=== PATIENT | male | born 1980 | race Caucasian/White ===

== ENCOUNTER 2023-09-09 15:50 | Inpatient (IN) | payer MEDICAID, SELFPAY ==
[2023-09-09] VITALS (8 sets, daily range): BP systolic 144–170; BP diastolic 101–119; PULSE 109–121; RESP 14–40; TEMP 36.3–36.8; O2SAT 95–100; BMI 22.3
--- NOTE | ~2023-09-09 | CT_ITS ---
EXAMINATION: CT ABDOMEN AND PELVIS WITH CONTRAST CLINICAL INFORMATION: Epigastric pain COMPARISON: None available. TECHNIQUE: Multidetector volumetric images were obtained from the superior aspect of the liver through the pubic symphysis following administration 85 mL of Omnipaque 350 intravenous contrast. Sagittal and coronal reformatted images were obtained on the technologist's workstation. Oral contrast: No This CT examination was performed using dose optimization techniques as appropriate, variously including the following: *Automated exposure control *Adjustment of mA and/or kV according to patient size (this includes techniques or standardized protocols for targeted exams where dose is matched to indication/reason for exam; i.e. extremities or head) *Use of iterative reconstruction technique DLP: 506 mGy-cm FINDINGS: LUNG BASES: There is bronchial thickening and some mild bibasilar atelectasis. LIVER, GALLBLADDER, AND BILIARY TREE: The liver is normal in size, shape, and attenuation. No focal hepatic lesion or biliary ductal dilatation is present. The gallbladder is unremarkable with no evidence of radiopaque gallstones, gallbladder wall thickening, or obvious pericholecystic inflammatory changes. PANCREAS: Inflammatory changes are present surrounding the entire pancreas with fluid in the peripancreatic space. The largest collection of fluid is just beneath the pancreas on the left measuring 5.8 x 2.9 x 1.7 cm. This has ill-defined borders. The pancreas enhances normally. No pancreatic ductal dilatation is seen. No pancreatic calcifications are seen. SPLEEN: Unremarkable. ADRENAL GLANDS: Unremarkable. KIDNEYS AND URETERS: The kidneys are normal in size, shape, and attenuation. No hydronephrosis, hydroureter, or calculi seen. No perinephric stranding. BLADDER: Unremarkable. GASTROINTESTINAL TRACT: The left colon along with the mid ascending colon are empty with some equivocal mucosal thickening. The small and large bowel are unremarkable otherwise. The appendix is not seen with certainty but there is certainly no evidence of appendicitis. ABDOMINAL WALL: No significant hernia is appreciated. LYMPH NODES: No retroperitoneal lymphadenopathy. There is some small intensely enhancing lymph nodes around the ita hepatis and pancreatic head. VASCULAR: Unremarkable. There is no splenic vein thrombosis or pseudoaneurysm is seen the portal venous system and hepatic veins are patent. Mild atherosclerotic change seen in the infrarenal aorta without aneurysm. PELVIC VISCERA: The prostate and seminal vesicles are unremarkable. There is no free pelvic fluid. OSSEOUS STRUCTURES: Unremarkable. CT/CT abdomen pelvis w IV con IMPRESSION: 1. Findings are consistent with acute pancreatitis with peripancreatic fluid collections. 2. Other incidental findings as described above. Fleischner guidelines were followed.
--- NOTE | ~2023-09-09 | US_ITS ---
EXAMINATION: US ABDOMEN LIMITED CLINICAL INFORMATION: Abdominal pain. COMPARISON: CT from 09/09/2023 TECHNIQUE: Real-time imaging of the right upper quadrant abdominal viscera. FINDINGS: LIVER: The liver is normal in size. The liver contour is normal. There is diffuse increased liver parenchymal echogenicity, consistent with hepatic steatosis. No focal hepatic lesion. There is no intrahepatic biliary duct dilatation seen. GALLBLADDER: Cystic area seen off the fundus of the gallbladder most consistent with a phrygian cap. The gallbladder is physiologically distended without evidence of stones, sludge, polyps, wall thickening or pericholecystic fluid. COMMON BILE DUCT: Normal in caliber measuring 0.3 cm in diameter. FREE FLUID: Trace perihepatic ascites US/US abdomen complete IMPRESSION: 1. Hepatic steatosis. 2. Trace perihepatic ascites.
--- NOTE | ~2023-09-09 | CT_ITS ---
EXAMINATION: CT ABDOMEN AND PELVIS WITH CONTRAST CLINICAL INFORMATION: Abdominal pain, pancreatitis COMPARISON: CT abdomen and pelvis 09/09/2023 TECHNIQUE: Multidetector volumetric images were obtained from the superior aspect of the liver through the pubic symphysis following administration 85 mL of Omnipaque 350 intravenous contrast. Sagittal and coronal reformatted images were obtained on the technologist's workstation. Oral contrast: No This CT examination was performed using dose optimization techniques as appropriate, variously including the following: *Automated exposure control *Adjustment of mA and/or kV according to patient size (this includes techniques or standardized protocols for targeted exams where dose is matched to indication/reason for exam; i.e. extremities or head) *Use of iterative reconstruction technique DLP: 454 mGy-cm FINDINGS: LUNG BASES: Unremarkable. ABDOMINAL AND PELVIC WALL: Tiny fat-containing umbilical hernia. LIVER AND BILIARY TREE: Unremarkable. GALLBLADDER: Unremarkable. PANCREAS: Interval improvement in pancreatic parenchymal edema within the pancreatic head which is decreased in size with decreasing inflammatory change surrounding the pancreatic head and resolution of adjacent duodenal wall thickening. There is persistent peripancreatic fluid and stranding surrounding the pancreatic body and tail which is similar in volume to prior, with an acute peripancreatic collection inferior to the pancreas measuring approximately 7.6 cm, previously 7.5 cm when measured in a similar fashion. Pancreas is homogeneously enhancing. No pancreatic duct dilatation. SPLEEN: Unremarkable. ADRENAL GLANDS: Unremarkable. KIDNEYS AND URETERS: Unremarkable. GASTROINTESTINAL TRACT: Colonic diverticulosis without focal pericholecystic inflammatory change to suggest diverticulitis. There is diffuse deposition of intramural fat throughout the colon which is nonspecific though may reflect sequelae of prior chronic inflammation. The appendix is not identified with certainty however there are no right lower quadrant inflammatory changes to favor appendicitis. VASCULAR: Unremarkable. LYMPH NODES/PERITONEUM: No lymphadenopathy. FREE FLUID: None. BLADDER: Unremarkable. PELVIC VISCERA: Unremarkable. OSSEOUS STRUCTURES: Unremarkable. CT/CT abdomen pelvis w IV con IMPRESSION: Again seen are findings of acute interstitial pancreatitis with improvement in pancreatic parenchymal edema within the pancreatic head which is decreased in size with decreasing inflammatory change surrounding the pancreatic head and resolution of adjacent duodenal wall thickening. There is persistent peripancreatic fluid and stranding surrounding the pancreatic body and tail which is similar in volume to prior, with an acute peripancreatic collection inferior to the pancreas measuring approximately 7.6 cm. Pancreas is homogeneously enhancing. No pancreatic duct dilatation.
--- NOTE | ~2023-09-09 | XR_ITS ---
EXAMINATION: XR CHEST CLINICAL INFORMATION: Rule out free air under the diaphragm COMPARISON: None available. TECHNIQUE: Frontal view of the chest was obtained. FINDINGS: No significant abnormality is noted involving the heart, lungs, mediastinum, bony thorax or soft tissues. There is no free air under the diaphragm XR/XR chest 1V IMPRESSION: Unremarkable examination.
--- NOTE | 2023-09-09 15:52 | ECG_ITS ---
Test Reason : CHEST PAIN Blood Pressure : / mmHG Vent. Rate : 123 BPM Atrial Rate : 123 BPM P-R Int : 126 ms QRS Dur : 078 ms QT Int : 318 ms P-R-T Axes : 082 121 057 degrees QTc Int : 455 ms Sinus tachycardia Biatrial enlargement Right axis deviation Abnormal ECG No previous ECGs available Referred By: Generic ED Physician Electronically Signed By:GRETCHEN PHELPS
--- NOTE | 2023-09-09 16:16 | ECG_ITS ---
Test Reason : chest pain Blood Pressure : / mmHG Vent. Rate : 091 BPM Atrial Rate : 091 BPM P-R Int : 134 ms QRS Dur : 078 ms QT Int : 390 ms P-R-T Axes : 085 090 054 degrees QTc Int : 479 ms Normal sinus rhythm Possible Left atrial enlargement Rightward axis Borderline ECG When compared with ECG of 09-SEP-2023 15:52, No significant changes seen Referred By: Leana Nelson Electronically Signed By:GRETCHEN PHELPS
[2023-09-09] MEDS: 0.9 % Sodium Chloride 1,000 ML 999 ML IVCONT ×3 (16:25→20:08)
[2023-09-09] MEDS: fentaNYL citrate/PF 100 MCG/2 ML VIAL 50 MCG IVPUSH (16:30)
--- NOTE | 2023-09-09 16:30 | PC.NURSE ---
patient presented to the ED room, diaphoretic, pale, tachycardic and hypotensive, placed and 18# in the right and a 20# in the left, hung 2L NS, cultures and lab work obtained. patient initially lethargic. patient mom states that the patient drank 5 nips prior to arrival. patient is chronic everyday drinker. patient states he has abdominal pain and chest pain
[2023-09-09 16:33] LABS: MANUAL DIFF FLAG NO
[2023-09-09 16:35] LABS: Basophils Absolute Auto 0.1 X10*3/uL (0.0-0.2); Basophils Percent Auto 0.7 % (0-2); Eosinophils Absolute Auto 0.1 X10*3/uL (0.0-0.4); Eosinophils Percent Auto 0.8 % (0-4); Hematocrit 51.2 % (42.0-52.0); Hemoglobin 17.9 g/dl (14.0-18.0); Imm Gran Abs Auto 0.13 X10*3/uL (0.00-0.03); Imm Gran Pct Auto 0.8 % (0.0-0.4); Lymphocytes Percent Auto 17.5 % (20-40); Mean Corpuscular Hemoglobin 33.8 pg (27.0-33.0); Mean Corpuscular Volume 96.8 fL (80.0-98.0); Mean Platelet Volume 10.8 fL (9.4-12.4); Monocytes Absolute Auto 1.3 X10*3/uL (0.1-1.2); Monocytes Percent Auto 7.4 % (2-11); Neutrophils Absolute Auto 12.3 x10*3/uL (2.0-8.3); Neutrophils Percent Auto 72.8 % (45-73); Platelet Count 246 X10*3/uL (160-400); Red Blood Count 5.29 X10*6/uL (4.60-5.80); Red Cell Distribution Width 12.2 % (11.0-16.0); White Blood Count 16.9 X10*3/uL (4.8-10.8)
[2023-09-09 16:47] LABS: COVID-19 Test Negative (Negative); IDNOW Serial# 58CA691E
[2023-09-09] MEDS: Pantoprazole Sodium 40 MG/10 ML VIAL 80 MG IVPUSH (16:49)
[2023-09-09] MEDS: ondansetron HCL 4 MG/2 ML VIAL IVPUSH ×2 (16:50→23:46)
[2023-09-09] MEDS: iohexoL 350 MG/ML 100 ML INFUS..BTL 85 ML IV (16:52)
[2023-09-09 17:05] LABS: Troponin-I High Sensitivity < 2.7 ng/L (<3.5-35.0)
[2023-09-09 17:08] LABS: Lactic Acid 4.3 mmol/L (0.5-2.0)
--- NOTE | 2023-09-09 17:12 | ED_ITS ---
HPI - Chest Pain General Chief Complaint: Chest Pain Stated Complaint: Chest pain Time Seen by Provider: 09/09/23 16:09 Source: patient and family Mode of arrival: ambulatory Limitations: no limitations History of Present Illness ED Provider: Dr. Leana Nelson HPI narrative: Patient comes to the emergency room complaining of severe epigastric pain and chest pain that started this morning approximately 7 hours ago. Patient states that for the last 3 days, he has been having abdominal pain. For the last day the pain has been unbearable. However, the patient states that he was afraid of coming to the emergency room because he does not have health insurance. Today, patient became diaphoretic, had chest pain and epigastric pain. Patient's mother is a nurse and forced him to come to the emergency room. According to the patient, he admits to drinking alcohol daily, 5 nips daily. Patient admits that he drank alcohol this morning. Per patient's mother, he also smokes marijuana, cigarettes and possibly does drugs. Related Data Allergies Allergy/AdvReac Type Severity Reaction Status Date / Time cefaclor [From Ceclor] AdvReac Unknown Verified 09/09/23 16:11 Review of Systems 2 Review of Systems: Constitutional : No Weight loss, No Fever, No Chills, No Night Sweats, No Fatigue, No Malaise ENT/Mouth : No Hearing loss, No Ear Pain, No Nasal Congestion, No Sinus Pain, No Hoarseness, No sore throat, No Rhinorrhea, No Swallowing Difficulty Eyes: No Eye Pain, No Swelling, No Redness, No Foreign Body, No Discharge, No Vision Changes Cardiovascular : Complaining of severe epigastric/substernal Chest Pain, No SOB, No Dyspnea on Exertion, No Orthopnea, No Edema, No Palpitations Respiratory : No Cough, No Sputum, No Wheezing, No Smoke Exposure, No Dyspnea Gastrointestinal : Complaining of nausea vomiting, diarrhea, severe epigastric pain, denies hematemesis or melena Genitourinary : no irregular bleeding, No Dysuria, No Urinary Frequency, No Hematuria, No Urinary Incontinence, No Urgency, No Flank Pain, No Urinary Flow Changes, No Hesitancy Musculoskeletal : No joint pain, No Myalgias, No Joint Swelling Skin : No Skin Lesions, No rash Neuro : No Weakness, No Numbness, No Paresthesias, No Loss of Consciousness, No Dizziness, No Headache Psych : No Anxiety/Panic, No Depression, No SI/HI/AH/VH, No Social Issues, Heme/Lymph: No Bruising, No Bleeding,No Lymphadenopathy Endocrine : No Polyuria, No Polydipsia, No Temperature Intolerance [facility] Past Medical History Medical History Alcohol abuse Social History Social History Alcohol intake: current Alcohol intake frequency: 3 or more drinks per day Alcohol type: hard liquor Use of substances other than those prescribed or required for medical reasons: No Advance Directives: No Advance Directives Information Provided: No Do you have a plan to hurt others: No Plan Physical Exam 2 Vital Signs: Vital Signs: Last Vital Signs Temp 97.9 F 09/09/23 18:38 Pulse 120 H 09/09/23 18:38 Resp 32 H 09/09/23 18:38 BP 159/112 H 09/09/23 18:38 Pulse Ox 100 09/09/23 18:38 O2 Del Method Room Air 09/09/23 18:38 BMI result Body Mass Index 22.3 Const: Other: Appearance: Alert. Oriented X3. Patient in severe pain , tremulous Eyes: Pupils equal, round and reactive to light. ENT: Pharynx normal. Neck: Normal inspection. Neck supple. No lymph nodes noted. No crepitus CVS: Normal heart rate and rhythm. Pulses normal. Normal S1 and S2 Respiratory: No respiratory distress. Breath sounds normal. No Wheezing. No rales Abdomen: Soft, slightly distended, very painful to palpation with guarding over the epigastric area and periumbilical area. Skin: Skin warm and clammy, patient diffusely pale. Extremities: No lower extremity edema. No Lacerations. No Rash Neuro: Oriented X 3. No motor deficit. No sensory deficit. Moving all extremities. No slurred speech. CN 2 through 12 grossly intact Psych: calm, cooperative, a bit anxious Course Course Course Narrative: -all of patient's labs and imaging pending -EKG shows some subtle ST segment depressions in inferior and lateral leads less than 1 mm, cardiology has been contacted: Nonspecific changes at this time -patient was given 50 mcg of IV fentanyl -stat chest x-ray ordered to rule out free air under the diaphragm -will need a CT Medications Administered Generic Name Dose Route Start Last Admin Trade Name Freq PRN Reason Stop Dose Admin Sodium Chloride 1,000 mls @ 999 mls/hr 09/09/23 19:55 09/09/23 20:07 Ns IVCONT 09/09/23 20:55 999 mls/hr .Q1H1M ONE Administration Sodium Chloride 1,000 mls @ 999 mls/hr 09/09/23 20:01 09/09/23 20:08 Ns IVCONT 09/09/23 21:01 999 mls/hr .Q1H1M ONE Administration Discontinued Medications Generic Name Dose Route Start Last Admin Trade Name Kulwant PRN Reason Stop Dose Admin Fentanyl 50 mcg 09/09/23 16:24 09/09/23 16:30 Fentanyl Citrate/Pf 100 Mcg/2 Ml Vial IVPUSH 09/09/23 16:25 50 mcg Q1H ONE Administration Protocol Hydromorphone HCl 1 mg 09/09/23 19:26 09/09/23 19:36 Hydromorphone Hcl 1 Mg/Ml Syringe IVPUSH 09/09/23 19:27 1 mg ONCE ONE Administration Protocol Sodium Chloride 1,000 mls @ 999 mls/hr 09/09/23 16:16 09/09/23 17:51 Ns IVCONT 09/09/23 17:16 Infused .Q1H1M ONE Infusion Sodium Chloride 2,177.25 mls @ 2,177.25 mls/hr 09/09/23 17:11 09/09/23 19:02 Ns 30 ml/kg infuse over 1 hr (2177.25 ml) 09/09/23 18:10 Infused IV Infusion .Q1H STA Piperacillin Sod/Tazobactam 50 mls @ 100 mls/hr 09/09/23 17:11 09/09/23 17:51 Sod 3.375 gm/ Sodium Chloride IV 09/09/23 17:40 Infused ONCE ONE Infusion Iohexol 85 ml 09/09/23 16:51 09/09/23 16:52 Iohexol 350 Mg/Ml 100 Ml Infus..Btl IV 09/09/23 16:52 85 ml ONCE ONE Administration Lorazepam 2 mg 09/09/23 19:55 09/09/23 20:07 Lorazepam 2 Mg/Ml Vial IVPUSH 09/09/23 19:56 2 mg ONCE ONE Administration Morphine Sulfate 4 mg 09/09/23 16:19 09/09/23 17:45 Morphine Sulfate 4 Mg/Ml Cartridge IVPUSH 09/09/23 16:20 4 mg ONCE ONE Administration Protocol Ondansetron HCl 4 mg 09/09/23 16:19 09/09/23 16:50 Ondansetron Hcl 4 Mg/2 Ml Vial IVPUSH 09/09/23 16:20 4 mg ONCE ONE Administration Pantoprazole Sodium 80 mg 09/09/23 16:19 09/09/23 16:49 Pantoprazole Sodium 40 Mg/10 Ml Vial IVPUSH 09/09/23 16:20 80 mg ONCE ONE Administration Medical Decision Making Medical Decision Making [facility] Narrative: -my interpretation of chest x-ray: No obvious free air under the diaphragm. CT scan to follow - -my interpretation of EKG 1: Sinus tachycardia, heart rate 123, nonspecific ST segment depressions in inferior leads and lateral leads less than 1 mm, no T- wave inversion, QTC 455 -I discussed the EKG findings with Dr. Ann, no obvious sign on STEMI/NSTEMI at this time. -at this time, 17:12, we received some of the labs, patient's white blood cell count is 16.9, lactic acid 4.3. This is secondary to pancreatitis, not sepsis. The rest of the labs are still pending. Patient does not have fever, blood pressure is actually elevated, 166/104. However, patient looks significantly sick. We will go ahead and start sepsis protocol at this time. Patient will be treated with IV fluids 30 mL/kilograms and empirically with Zosyn. -my interpretation of CT scan: Possible necrotizing pancreatitis? Stat radiology report has been requested -radiology report: Acute pancreatitis with peripancreatic collections -overall, patient feels much better, patient has had morphine, Dilaudid, fentanyl, patient eating ice chips and tolerating well -I discussed the patient with Dr. English and Dr. Azul, patient being admitted Differential Diagnosis Differential Diagnoses: The differential diagnosis associated with the presentation includes (Peptic ulcer perforation, necrotizing pancreatitis, pancreatitis, small-bowel obstruction, ACS) Admission/Observation Consideration of admission/observation: Escalation of care including admission/observation considered Consult Healthcare Provider Management of the patient was discussed with: Signalling And Communications Engineer Lab Data [facility] Lab Attestation statement: I reviewed the patient's lab results. 09/09/23 16:28 09/09/23 19:20 Labs: Lab Results 09/09/23 09/09/23 09/09/23 Range/Units 16:28 16:55 17:07 WBC 16.9 H (4.8-10.8) X10*3/uL RBC 5.29 (4.60-5.80) X10*6/uL Hgb 17.9 (14.0-18.0) g/dl Hct 51.2 (42.0-52.0) % MCV 96.8 (80.0-98.0) fL MCH 33.8 H (27.0-33.0) pg MCHC 35.0 (31.0-36.0) g/dl RDW 12.2 (11.0-16.0) % Plt Count 246 (160-400) X10*3/uL MPV 10.8 (9.4-12.4) fL Immature Gran % (Auto) 0.8 H (0.0-0.4) % Neut % (Auto) 72.8 (45-73) % Lymph % (Auto) 17.5 L (20-40) % [place] % (Auto) 7.4 (2-11) % Eos % (Auto) 0.8 (0-4) % Baso % (Auto) 0.7 (0-2) % Lymph # (Auto) 3.0 (1.2-4.9) X10*3/uL [place] # (Auto) 1.3 H (0.1-1.2) X10*3/uL Eos # (Auto) 0.1 (0.0-0.4) X10*3/uL Baso # (Auto) 0.1 (0.0-0.2) X10*3/uL Abs Immat Gran (auto) 0.13 H (0.00-0.03) X10*3/uL Absolute Neuts (auto) 12.3 H (2.0-8.3) x10*3/uL Absolute Nucleated RBC 0.000 (0.0-0.012) X10*3/uL Nucleated RBC % (auto) 0.0 (0.0-0.2) /100WBC PT 10.9 L (11.1-13.3) SEC INR 0.9 (0.9-1.1) Sodium (135-145) mmol/L Potassium (3.3-5.1) mmol/L Chloride (96-108) mmol/L Carbon Dioxide (22-29) mmol/L Anion Gap (12-20) BUN (9-16) mg/dL Creatinine (0.5-1.4) mg/dL Estim Creat Clear Calc Estimated GFR Random Glucose (60-115) mg/dL Lactic Acid (0.5-2.0) mmol/L Lactic Acid F/U @ 2Hr (0.5-2.0) mmol/L Calcium (8.4-10.2) mg/dL Magnesium (1.6-2.6) mg/dL Total Bilirubin (0.0-1.0) mg/dL Direct Bilirubin (0.0-0.5) mg/dL AST (5-37) U/L ALT (0-40) U/L Alkaline Phosphatase (39-117) U/L Troponin I High Sens < 2.7 (<3.5-35.0) ng/L Total Protein (6.5-8.0) g/dL Albumin (3.5-5.0) g/dL Lipase (8-78) U/L Urine Color Yellow Urine Appearance Clear Urine pH 6.5 (5.0-9.0) Ur Specific [place] >= 1.030 H (1.005-1.025) Urine Protein 30 (1+) H (Neg-Trace) mg/dL Urine Glucose (UA) Negative (Negative) mg/dL Urine Ketones 15 (Negative) mg/dL Urine Blood Negative (Negative) Urine Nitrite Negative (Negative) Ur Leukocyte Esterase Negative (Negative) Urine RBC 0-2 (0-2) /HPF Urine WBC 0-5 (0-5) /HPF Ur Squamous Epith Cells 0-2 (0-2) /HPF Urine Bacteria None Seen (None Seen) Hyaline Casts 3-5 (0-2) /LPF Urine Opiates Screen Not Detected (Not Detect) Ur Buprenorphine Scrn Not Detected (Not Detect) ng/mL Ur Oxycodone Screen Not Detected (Not Detect) ng/mL Urine Methadone Screen Not Detected (Not Detect) ng/mL Urine Fentanyl Screen POSITIVE H (Not Detect) Ur Barbiturates Screen Not Detected (Not Detect) Ur Phencyclidine Scrn Not Detected (Not Detect) Ur Amphetamines Screen Not Detected (Not Detect) U Benzodiazepines Scrn Not Detected (Not Detect) Urine Cocaine Screen Not Detected (Not Detect) U Marijuana (THC) Screen POSITIVE H (Not Detect) Ethyl Alcohol 126 mg/dL COVID-19 ([facility]) Negative (Negative) COVID-19 Clin Com See Note 09/09/23 09/09/23 Range/Units 19:20 Unknown WBC (4.8-10.8) X10*3/uL RBC (4.60-5.80) X10*6/uL Hgb (14.0-18.0) g/dl Hct (42.0-52.0) % MCV (80.0-98.0) fL MCH (27.0-33.0) pg MCHC (31.0-36.0) g/dl RDW (11.0-16.0) % Plt Count (160-400) X10*3/uL MPV (9.4-12.4) fL Immature Gran % (Auto) (0.0-0.4) % Neut % (Auto) (45-73) % Lymph % (Auto) (20-40) % [place] % (Auto) (2-11) % Eos % (Auto) (0-4) % Baso % (Auto) (0-2) % Lymph # (Auto) (1.2-4.9) X10*3/uL [place] # (Auto) (0.1-1.2) X10*3/uL Eos # (Auto) (0.0-0.4) X10*3/uL Baso # (Auto) (0.0-0.2) X10*3/uL Abs Immat Gran (auto) (0.00-0.03) X10*3/uL Absolute Neuts (auto) (2.0-8.3) x10*3/uL Absolute Nucleated RBC (0.0-0.012) X10*3/uL Nucleated RBC % (auto) (0.0-0.2) /100WBC PT (11.1-13.3) SEC INR (0.9-1.1) Sodium 142 (135-145) mmol/L Potassium 3.6 (3.3-5.1) mmol/L Chloride 108 (96-108) mmol/L Carbon Dioxide 17 L (22-29) mmol/L Anion Gap 21 H (12-20) BUN 6 L (9-16) mg/dL Creatinine 0.85 (0.5-1.4) mg/dL Estim Creat Clear Calc 117.4 Estimated GFR > 60 Random Glucose 88 (60-115) mg/dL Lactic Acid 4.3 H* (0.5-2.0) mmol/L Lactic Acid F/U @ 2Hr 3.6 H* (0.5-2.0) mmol/L Calcium 8.0 L (8.4-10.2) mg/dL Magnesium 1.5 L (1.6-2.6) mg/dL Total Bilirubin 0.9 (0.0-1.0) mg/dL Direct Bilirubin 0.4 (0.0-0.5) mg/dL AST 119 H (5-37) U/L ALT 239 H (0-40) U/L Alkaline Phosphatase 83 (39-117) U/L Troponin I High Sens (<3.5-35.0) ng/L Total Protein 6.7 (6.5-8.0) g/dL Albumin 4.2 (3.5-5.0) g/dL Lipase 842 H (8-78) U/L Urine Color Urine Appearance Urine pH (5.0-9.0) Ur Specific [place] (1.005-1.025) Urine Protein (Neg-Trace) mg/dL Urine Glucose (UA) (Negative) mg/dL Urine Ketones (Negative) mg/dL Urine Blood (Negative) Urine Nitrite (Negative) Ur Leukocyte Esterase (Negative) Urine RBC (0-2) /HPF Urine WBC (0-5) /HPF Ur Squamous Epith Cells (0-2) /HPF Urine Bacteria (None Seen) Hyaline Casts (0-2) /LPF Urine Opiates Screen (Not Detect) Ur Buprenorphine Scrn (Not Detect) ng/mL Ur Oxycodone Screen (Not Detect) ng/mL Urine Methadone Screen (Not Detect) ng/mL Urine Fentanyl Screen (Not Detect) Ur Barbiturates Screen (Not Detect) Ur Phencyclidine Scrn (Not Detect) Ur Amphetamines Screen (Not Detect) U Benzodiazepines Scrn (Not Detect) Urine Cocaine Screen (Not Detect) U Marijuana (THC) Screen (Not Detect) Ethyl Alcohol mg/dL COVID-19 ([facility]) (Negative) COVID-19 Clin Com Independent Interpretation I performed an independent interpretation of an: EKG and CT Scan Radiology Impression Discussion of test interpretation with radiology: I have reviewed the radiologist's reading. Radiologist Impression: FINDINGS: LUNG BASES: There is bronchial thickening and some mild bibasilar atelectasis. LIVER, GALLBLADDER, AND BILIARY TREE: The liver is normal in size, shape, and attenuation. No focal hepatic lesion or biliary ductal dilatation is present. The gallbladder is unremarkable with no evidence of radiopaque gallstones, gallbladder wall thickening, or obvious pericholecystic inflammatory changes. PANCREAS: Inflammatory changes are present surrounding the entire pancreas with fluid in the peripancreatic space. The largest collection of fluid is just beneath the pancreas on the left measuring 5.8 x 2.9 x 1.7 cm. This has ill-defined borders. The pancreas enhances normally. No pancreatic ductal dilatation is seen. No pancreatic calcifications are seen. SPLEEN: Unremarkable. ADRENAL GLANDS: Unremarkable. KIDNEYS AND URETERS: The kidneys are normal in size, shape, and attenuation. No hydronephrosis, hydroureter, or calculi seen. No perinephric stranding. BLADDER: Unremarkable. GASTROINTESTINAL TRACT: The left colon along with the mid ascending colon are empty with some equivocal mucosal thickening. The small and large bowel are unremarkable otherwise. The appendix is not seen with certainty but there is certainly no evidence of appendicitis. ABDOMINAL WALL: No significant hernia is appreciated. LYMPH NODES: No retroperitoneal lymphadenopathy. There is some small intensely enhancing lymph nodes around the ita hepatis and pancreatic head. VASCULAR: Unremarkable. There is no splenic vein thrombosis or pseudoaneurysm is seen the portal venous system and hepatic veins are patent. Mild atherosclerotic change seen in the infrarenal aorta without aneurysm. PELVIC VISCERA: The prostate and seminal vesicles are unremarkable. There is no free pelvic fluid. OSSEOUS STRUCTURES: Unremarkable. CT/CT abdomen pelvis w IV con IMPRESSION: 1. Findings are consistent with acute pancreatitis with peripancreatic fluid collections. 2. Other incidental findings as described above. Fleischner guidelines were followed. Independent Historian Clinical information obtained from an independent historian. History obtained from or confirmed by: Parent (Patient's mother) Critical Care Time Critical Care Time Critical Care Time: Yes Total Critical Care Time: 75 Attestation: I have personally provided critical care time. Time includes review of lab data, radiology results, discussion with consultants, and monitoring for potential decompensation. Intervention performed as documented. Discharge Plan Discharge Clinical Impression: Acute pancreatitis Patient Disposition: Admitted As Inpatient Print Language: [place]
[2023-09-09 17:15] LABS: INTERNATIONAL NORM RATIO 0.9 (0.9-1.1); Prothrombin Time 10.9 SEC (11.1-13.3)
[2023-09-09] MEDS: Piperacillin Sodium/Tazobactam 3.375 GM in 0.9 % Sodium Chloride 50 ML IV (17:15)
[2023-09-09 17:17] LABS: Ethanol 126 mg/dL
[2023-09-09 17:22] LABS: Appearance Urine Clear; Color Urine Yellow; Glucose Urine UA Negative (Negative); Leukocyte Esterase Urine Negative (Negative); Nitrite Urine Negative (Negative); PH 6.5 (5.0-9.0); UMIC TRIGGER UACC YES; Urine Blood Negative (Negative); Urine Ketones 15 mg/dL (Negative); Urine Protein 30 (1+) mg/dL (Neg-Trace)
[2023-09-09] MEDS: 0.9 % Sodium Chloride 2,177.25 ML 2177.25 ML IV (17:23)
[2023-09-09 17:33] LABS: Amphetamine Screen Urine Not Detected (Not Detect); Barbiturates, Urine Not Detected (Not Detect); Benzodiazepines Screen Urine Not Detected (Not Detect); Buprenorphine Scr Not Detected (Not Detect); Cannabinoid Screen Urine POSITIVE (Not Detect); Cocaine Screen Urine Not Detected (Not Detect); Fentanyl, urine POSITIVE (Not Detect); Methadone Screen, Urine Not Detected (Not Detect); Opiate Screen Urine Not Detected (Not Detect); Oxycodone Screen Urine Not Detected (Not Detect); Phencyclidine Screen Urine Not Detected (Not Detect)
[2023-09-09] MEDS: Morphine Sulfate 4 MG/ML CARTRIDGE IVPUSH (17:45)
[2023-09-09 18:29] LABS: Bacteria Urine None Seen (None Seen); RBC Urine 0-2 /HPF (0-2); Squamous Epithelial Cell Urine 0-2 /HPF (0-2); WBC Urine 0-5 /HPF (0-5)
[2023-09-09 18:32] LABS: Specific Gravity - Urine >= 1.030 (1.005-1.025)
[2023-09-09 18:32] LABS: Reflex Lactate? Lactic Acid Added
[2023-09-09] MEDS: HYDROmorphone HCl 1 MG/ML SYRINGE IVPUSH ×2 (19:36→23:46)
[2023-09-09 19:54] LABS: ~Lactic Acid-LAB USE ONLY 3.6 mmol/L (0.5-2.0)
[2023-09-09 19:58] LABS: Alanine Aminotransferase 239 U/L (0-40); Albumin Level 4.2 g/dL (3.5-5.0); Alkaline Phosphatase 83 U/L (39-117); Anion Gap 21 (12-20); Aspartate Amino Transferase 119 U/L (5-37); Bilirubin Direct 0.4 mg/dL (0.0-0.5); Bilirubin Total 0.9 mg/dL (0.0-1.0); Blood Urea Nitrogen 6 mg/dL (9-16); Carbon Dioxide 17 mmol/L (22-29); Chloride 108 mmol/L (96-108); Creatinine Clr Calc Pharmacy 117.4; Estimated Glomerular Filt Rate > 60; Glucose Random 88 mg/dL (60-115); Lipase 842 U/L (8-78); Magnesium 1.5 mg/dL (1.6-2.6); Potassium 3.6 mmol/L (3.3-5.1); Sodium 142 mmol/L (135-145); Total Protein 6.7 g/dL (6.5-8.0)
[2023-09-09] MEDS: LORazepam 2 MG/ML VIAL IVPUSH (20:07)
--- NOTE | 2023-09-09 21:07 | P.HPHOSP_ITS ---
History of Present Illness Date of Service: 09/09/23 Attending physician on admission: Pauly Birmingham Chief Complaint: Abdominal pain J Luis Mcguire is a very pleasant 43 years old man with past medical history significant for alcohol abuse presents to the emergency department complaining of epigastric pain that has been on and off over the last 4 days. Today he experience burning chest pain with deep inspiration associated with multiple events of nonbloody/non coffee-ground vomiting. He reported suggestive fever. Denies diarrhea, headache, shortness of breath or cough. Last bowel movement was yesterday was normal. Abdominal past medical history significant for appendectomy. He drinks 4-5 shots of vodka. Last alcoholic drink was today around lunchtime. Denied illicit drug use. Smoke marijuana in occasions. In the ED, he was found to be hypertensive, tachypneic and tachycardic. There is no fever. There is hypomagnesemia, 1.5 and bicarb is 17. There are no other electrolyte imbalances. Renal function is normal. Transaminases are elevated. Bilirubin and alk phos are normal. Lipase is 142. Troponin is negative. Lactic acid was initially 4.3, rechecked 3.6. CXR is negative. Abdominal pelvis CT scan showed findings consistent with acute pancreatitis with peripancreatic fluid collections. ECG showed normal sinus rhythm without abuse ischemic changes. COVID-19 test is negative. Urine toxicology: Positive for fentanyl and marijuana. ETOH level is 126. UA showed increased specific gravity and 1+ protein. ED tx: NS 5 L bolus, Ativan 2 mg IV, Dilaudid 1 mg IV, Zosyn 3.375 g IV, fentanyl 50 mcg IV, Zofran 4 mg IV, morphine 4 mg IV, Protonix 80 mg IV Review of Systems 2 Review of Systems: All 12 systems were reviewed and normal except as noted in HPI. [facility] Medical History Acute pancreatitis Alcohol abuse Surgical History (Updated 09/09/23 @ 21:43 by Pauly Birmingham MD) History of appendectomy Social History Alcohol intake: current Alcohol intake frequency: 3 or more drinks per day Alcohol type: hard liquor Use of substances other than those prescribed or required for medical reasons: No Advance Directives: No Advance Directives Information Provided: No Do you have a plan to hurt others: No Plan Meds Allergies Allergy/AdvReac Type Severity Reaction Status Date / Time cefaclor [From [facility]] AdvReac Unknown Verified 09/09/23 16:11 Active Medications: Current Medications Acetaminophen (Acetaminophen 325 Mg Tablet) 650 mg PO Q6H PRN PRN Reason: Pain, Mild (Pain Scale 1-3), fever or headache Enoxaparin Sodium (Enoxaparin Sodium 40 Mg/0.4 Ml Syringe) 40 mg SUBCUT Q24H JAQUELINE Hydromorphone HCl (Hydromorphone Hcl 1 Mg/Ml Syringe) 1 mg IVPUSH Q4H PRN; Protocol PRN Reason: Pain, Severe (Pain Scale 7-10) Dextrose/Sodium Chloride (D5ns) 1,000 mls @ 125 mls/hr IVCONT .Q8H JAQUELINE Thiamine HCl 100 mg/ Sodium (Chloride) 101 mls @ 202 mls/hr IV DAILY JAQUELINE Ondansetron HCl (Ondansetron Hcl 4 Mg/2 Ml Vial) 4 mg IVPUSH Q6H PRN PRN Reason: Nausea and Vomiting Pantoprazole Sodium (Pantoprazole Sodium 40 Mg/10 Ml Vial) 40 mg IVPUSH BID [facility] Sodium Chloride (0.9 % Sodium Chloride Flush 3 Ml Syringe) 3 ml IVFLUSH QSHIFT [facility] Home Medications ?Medication ?Instructions ?Recorded ?Confirmed ?Last Taken ?Type omeprazole 20 mg tablet,delayed 20 mg PO DAILY 09/09/23 09/09/23 Unknown History release Physical Exam 2 Vital Signs and Narrative: Vital Signs: Last Vital Signs Temp 97.6 F 09/09/23 20:39 Pulse 121 H 09/09/23 20:39 Resp 17 09/09/23 20:39 BP 170/119 H 09/09/23 20:39 Pulse Ox 99 09/09/23 20:39 O2 Del Method Room Air 09/09/23 20:39 BMI result Body Mass Index 22.3 Constitutional - Awake and Alert, No apparent distress. Pleasant. Cooperative. HEENT - Atraumatic head, normocephalic. Normal sclerae. Dry oral mucosa. Heart - Tachycardia Lungs - Normal lung expansion, Normal respiratory effort, No respiratory distress, CTA bilaterally Abdomen- Nondistended. Decreased bowel sounds. Epigastric tenderness. No rebound or guarding. Right lower quadrant surgical scar. Extremities - No calf tenderness bilaterally, no swelling Musculoskeletal - Normal inspection, normal ROM Skin - Warm/Dry Neurological - Alert & oriented x3, CN III-XII in tact, 5/5 strength BUE and BLE Psychological - Depressed affect Results Labs 09/09/23 16:28 09/09/23 19:20 Labs: Laboratory Results - last 24 hr 09/09/23 09/09/23 09/09/23 16:28 16:55 17:07 MCV 96.8 MCH 33.8 H MCHC 35.0 RDW 12.2 Plt Count 246 MPV 10.8 Immature Gran % (Auto) 0.8 H Neut % (Auto) 72.8 Lymph % (Auto) 17.5 L Bremer % (Auto) 7.4 Eos % (Auto) 0.8 Baso % (Auto) 0.7 Lymph # (Auto) 3.0 [place]mer # (Auto) 1.3 H Eos # (Auto) 0.1 Baso # (Auto) 0.1 Abs Immat Gran (auto) 0.13 H Absolute Neuts (auto) 12.3 H Absolute Nucleated RBC 0.000 Nucleated RBC % (auto) 0.0 PT 10.9 L INR 0.9 Anion Gap Estim Creat Clear Calc Estimated GFR Random Glucose Lactic Acid Lactic Acid F/U @ 2Hr Calcium Magnesium Total Bilirubin Direct Bilirubin AST ALT Alkaline Phosphatase Troponin I High Sens < 2.7 Total Protein Albumin Lipase Urine Color Yellow Urine Appearance Clear Urine pH 6.5 Ur Specific [place] >= 1.030 H Urine Protein 30 (1+) H Urine Glucose (UA) Negative Urine Ketones 15 Urine Blood Negative Urine Nitrite Negative Ur Leukocyte Esterase Negative Urine RBC 0-2 Urine WBC 0-5 Ur Squamous Epith Cells 0-2 Urine Bacteria None Seen Hyaline Casts 3-5 Urine Opiates Screen Not Detected Ur Buprenorphine Scrn Not Detected Ur Oxycodone Screen Not Detected Urine Methadone Screen Not Detected Urine Fentanyl Screen POSITIVE H Ur Barbiturates Screen Not Detected Ur Phencyclidine Scrn Not Detected Ur Amphetamines Screen Not Detected U Benzodiazepines Scrn Not Detected Urine Cocaine Screen Not Detected U Marijuana (THC) Screen POSITIVE H Ethyl Alcohol 126 COVID-19 (MALA) Negative COVID-19 Clin Com See Note 09/09/23 09/09/23 19:20 Unknown MCV MCH MCHC RDW Plt Count MPV Immature Gran % (Auto) Neut % (Auto) Lymph % (Auto) [place] % (Auto) Eos % (Auto) Baso % (Auto) Lymph # (Auto) [place] # (Auto) Eos # (Auto) Baso # (Auto) Abs Immat Gran (auto) Absolute Neuts (auto) Absolute Nucleated RBC Nucleated RBC % (auto) PT INR Anion Gap 21 H Estim Creat Clear Calc 117.4 Estimated GFR > 60 Random Glucose 88 Lactic Acid 4.3 H* Lactic Acid F/U @ 2Hr 3.6 H* Calcium 8.0 L Magnesium 1.5 L Total Bilirubin 0.9 Direct Bilirubin 0.4 AST 119 H ALT 239 H Alkaline Phosphatase 83 Troponin I High Sens Total Protein 6.7 Albumin 4.2 Lipase 842 H Urine Color Urine Appearance Urine pH Ur Specific [place] Urine Protein Urine Glucose (UA) Urine Ketones Urine Blood Urine Nitrite Ur Leukocyte Esterase Urine RBC Urine WBC Ur Squamous Epith Cells Urine Bacteria Hyaline Casts Urine Opiates Screen Ur Buprenorphine Scrn Ur Oxycodone Screen Urine Methadone Screen Urine Fentanyl Screen Ur Barbiturates Screen Ur Phencyclidine Scrn Ur Amphetamines Screen U Benzodiazepines Scrn Urine Cocaine Screen U Marijuana (THC) Screen Ethyl Alcohol COVID-19 (MALA) COVID-19 Clin Com Imaging Radiologist's Impressions: Impressions Chest X-Ray 09/09/23 16:35 IMPRESSION: Unremarkable examination. Abdomen/Pelvis CT 09/09/23 17:06 IMPRESSION: 1. Findings are consistent with acute pancreatitis with peripancreatic fluid collections. 2. Other incidental findings as described above. Fleischner guidelines were followed. Assessment and Plan (1) Lactic acidosis: Status: Acute (2) Hypomagnesemia: Status: Acute (3) Elevated levels of transaminase & lactic acid dehydrogenase: Status: Acute (4) Alcohol intoxication: Qualifiers: Complication of substance-induced condition: uncomplicated Qualified Code(s): F10.920 - Alcohol use, unspecified with intoxication, uncomplicated Status: Acute Plan J Luis Mcguire is a 43 years old man admitted with: * Acute alcoholic pancreatitis without evidence of necrosis. Admit to hospitalist service. NPO. Continue IV hydration: 0.9/D5. Symptomatic therapy as needed with Dilaudid and Zofran IV. Continue Protonix 40 mg IV twice daily. Check CRP now then daily. Recheck lipase in the morning. * SIRS criteria, but no sepsis, very low suspicion for acute infection. Lactic acidosis, tachycardia and tachypnea likely secondary to above, alcohol intoxication and dehydration. No antibiotics needed. Continue IV hydration. Telemetry. Continue to monitor lactic acid. * Elevated transaminases, secondary to alcohol. Patient was advised to active to alcohol consumption. Continue to monitor LFTs. * Hypomagnesemia, secondary to alcohol abuse. Replete as needed. Continue to monitor magnesium level. * Alcohol abuse. CIWA every 4 hours. To consider phenobarbital protocol as needed. Thiamine 100 mg IV daily, 1st dose now followed by IV fluids with D5. Folic acid and multivitamins when able. Addiction medicine consult. Social Service/case management consult. DVT prophylaxis: Heparin subcut Code status: Full Patient will need hospitalization for at least 2 midnights for alcoholic pancreatitis treatment IV pain meds, IV hydration and close monitoring of vital signs. Quality Stroke Does the patient have a stroke diagnosis?: No VTE Prior VTE?: No VTE Risk Level:: Medical - moderate - high VTE Device Contraindication: Treatment Not Indicated VTE Drug Contraindication: N/A - Med Ordered
--- NOTE | 2023-09-09 21:18 | PHA.MEDREC ---
Pharmacy Consult ? Medication Reconciliation Pharmacy has completed the medication reconciliation, patient's mother was at bedside, confirmed he only takes omeprazole OTC at home.
[2023-09-09 21:30] LABS: Reflex Lactate? 2 Y
[2023-09-09] MEDS: Magnesium Sulfate/H2O 2 GM/50 ML PIGGYBACK IV (21:45)
[2023-09-09] MEDS: Dextrose 5 % and 0.9 % NaCl 1,000 ML 125 ML IVCONT (21:46)
[2023-09-09] MEDS: Thiamine HCL 100 MG in 0.9 % Sodium Chloride 100 ML 202 MG IV (21:46)
[2023-09-09 22:12] LABS: Cancel Lactic Acid Canceled
[2023-09-09 22:23] LABS: C Reactive Protein 0.57 mg/dL (< or = 0.50)
[2023-09-10] VITALS (11 sets, daily range): BP systolic 140–166; BP diastolic 90–115; PULSE 100–125; RESP 18–22; TEMP 36.2–37.1; O2SAT 95–99
[2023-09-10] MEDS: Labetalol HCL 100 MG/20 ML VIAL 10 MG IVPUSH (01:28)
[2023-09-10 01:44] LABS: Lactic Acid 0.9 mmol/L (0.5-2.0)
[2023-09-10 01:48] LABS: Anion Gap 16 (12-20); Blood Urea Nitrogen 6 mg/dL (9-16); Calcium 8.1 mg/dL (8.4-10.2); Carbon Dioxide 17 mmol/L (22-29); Chloride 110 mmol/L (96-108); Creatinine Clr Calc Pharmacy 131.3; Estimated Glomerular Filt Rate > 60; Glucose Random 115 mg/dL (60-115); Magnesium 1.9 mg/dL (1.6-2.6); Potassium 3.8 mmol/L (3.3-5.1); Sodium 139 mmol/L (135-145)
[2023-09-10] MEDS: Dextrose 5 % and 0.9 % NaCl 1,000 ML 125 ML IVCONT (03:41)
[2023-09-10] MEDS: ondansetron HCL 4 MG/2 ML VIAL IVPUSH ×3 (03:57→21:30)
[2023-09-10] MEDS: HYDROmorphone HCl 1 MG/ML SYRINGE IVPUSH ×5 (03:57→21:30)
[2023-09-10] MEDS: amLODIPine Besylate 2.5 MG TABLET 7.5 MG PO ×2 (04:28→20:30)
--- NOTE | 2023-09-10 04:32 | PC.NURSE ---
Been very hypertensive and tachycardia. Dr Jorge Alberto Birmingham make aware. See orders.
[2023-09-10 06:41] LABS: MANUAL DIFF FLAG NO
[2023-09-10 06:50] LABS: Basophils Percent Auto 0.3 % (0-2); Eosinophils Percent Auto 0.2 % (0-4); Hematocrit 42.9 % (42.0-52.0); Hemoglobin 14.8 g/dl (14.0-18.0); Imm Gran Abs Auto 0.07 X10*3/uL (0.00-0.03); Imm Gran Pct Auto 0.5 % (0.0-0.4); Lymphocytes Absolute Auto 1.2 X10*3/uL (1.2-4.9); Lymphocytes Percent Auto 8.4 % (20-40); Mean Corpuscular HGB Conc 34.5 g/dl (31.0-36.0); Mean Corpuscular Hemoglobin 33.9 pg (27.0-33.0); Mean Corpuscular Volume 98.4 fL (80.0-98.0); Monocytes Absolute Auto 0.9 X10*3/uL (0.1-1.2); Monocytes Percent Auto 6.4 % (2-11); Neutrophils Absolute Auto 11.7 x10*3/uL (2.0-8.3); Neutrophils Percent Auto 84.2 % (45-73); Platelet Count 173 X10*3/uL (160-400); Red Blood Count 4.36 X10*6/uL (4.60-5.80); Red Cell Distribution Width 12.2 % (11.0-16.0); White Blood Count 13.9 X10*3/uL (4.8-10.8)
[2023-09-10 07:15] LABS: Alanine Aminotransferase 171 U/L (0-40); Albumin Level 3.6 g/dL (3.5-5.0); Alkaline Phosphatase 68 U/L (39-117); Anion Gap 13 (12-20); Aspartate Amino Transferase 69 U/L (5-37); Bilirubin Total 0.9 mg/dL (0.0-1.0); Blood Urea Nitrogen 5 mg/dL (9-16); Calcium 8.1 mg/dL (8.4-10.2); Carbon Dioxide 19 mmol/L (22-29); Chloride 109 mmol/L (96-108); Creatinine Clr Calc Pharmacy 129.5; Estimated Glomerular Filt Rate > 60; Glucose Random 130 mg/dL (60-115); Magnesium 1.9 mg/dL (1.6-2.6); Potassium 3.8 mmol/L (3.3-5.1); Sodium 137 mmol/L (135-145); Total Protein 5.9 g/dL (6.5-8.0)
[2023-09-10 07:24] LABS: Lipase 613 U/L (8-78)
--- NOTE | 2023-09-10 08:17 | MHC.CM.PN ---
CM met with Patient at bedside. Patient is listed as, self-pay, and a referral has been made to [facility]. Patient lives in a 2 story house with his Brother on the second floor and his Mother lives on the first floor. Home/self care is the goal and CM has initiated and will follow for dc planning. PCP is Dr. Brennan Irby.
[2023-09-10] MEDS: Thiamine HCL 100 MG in 0.9 % Sodium Chloride 100 ML 202 MG IV (08:20)
[2023-09-10] MEDS: Enoxaparin Sodium 40 MG/0.4 ML SYRINGE SUBCUT (08:20)
[2023-09-10] MEDS: 0.9 % Sodium Chloride Flush 3 ML SYRINGE IVFLUSH (08:20)
[2023-09-10] MEDS: Pantoprazole Sodium 40 MG/10 ML VIAL IVPUSH (08:20)
[2023-09-10] MEDS: Lactated Ringers 1,000 ML 150 ML IVCONT ×2 (11:27→18:01)
[2023-09-10] MEDS: PHENobarbitaL sodium 130 MG/ML IM ONCE 232 MG IM (12:17)
--- NOTE | 2023-09-10 13:16 | PM.GICN ---
History of Present Illness Data of Consult Service Date: 09/10/23 Requesting physician: Charlotte Garces Primary Care Provider: Brennan Irby MD [facility] Reason for consult: pancreatitis with fluid collections 43 YM with history of alcohol abuse seen at [facility] [place] [facility] on 09/09/23 with epigastric pain x 4 days. Today he experience burning chest pain with deep inspiration associated with multiple events of nonbloody/non coffee-ground vomiting. Pt reported subjective fever and denied diarrhea, headache, shortness of breath or cough. Last bowel movement was yesterday and was normal. Pt is status post appendectomy. History obtained from the patient and his Mom (retired nurse) who was at the bedside Pt denies prior episodes of similar abdominal pain or pancreatitis. Pt complains of 8-10/10 upper abdominal/lower chest pain which is constant and feels like a golf ball is trying to push through his chest Pain improves to 3/10 after pain medications. He complains of difficulty trying to take a deep breath and moving makes the pain worse He has the urge to have a BM, goes to the bathroom and nothing comes out. Pt admits to smoking 1/2 PPD x 25 years. he admits to drinking 5-7 shots of vodka per day (has been drinking x 5 years) Last alcoholic drink was around lunchtime on 09/09/23. Pt admitted to smoking marijuana occasionally and denied illicit drug use. Pt is unemployed and lives on the 2nd floor in a 2 Family house with his brother (his Mom lives downstairs) Family hx is positive for Pancreatitis and ETOH use in his brother. Mom reports a hx of stomach and colon cancer in pt's maternal Grandparents In the ED, he was found to be hypertensive, tachypneic and tachycardic without fever. Labs revealed hypomagnesemia, 1.5 and bicarb is 17. There are no other electrolyte imbalances. Renal function is normal. LFTs showed elevated transaminases with normal Bilirubin and alk phos. Lipase is 842 and decreased to 613 today. Troponin is negative. Lactic acid was initially 4.3, rechecked 3.6. CXR is negative. Abdominal pelvis CT scan showed findings consistent with acute pancreatitis with peripancreatic fluid collections. ECG showed normal sinus rhythm without abuse ischemic changes. COVID-19 test is negative. Urine toxicology: Positive for fentanyl and marijuana. ETOH level is 126. UA showed increased specific gravity and 1+ protein. ED tx: NS 5 L bolus, Ativan 2 mg IV, Dilaudid 1 mg IV, Zosyn 3.375 g IV, fentanyl 50 mcg IV, Zofran 4 mg IV, morphine 4 mg IV, Protonix 80 mg IV Review of Systems Review of Systems: All 12 systems were reviewed and normal except as noted in HPI. [facility] Past Medical History Medical History Acute pancreatitis Alcohol abuse Family History Family History (Updated 09/12/23 @ 13:05 by Ramo Ann MD) Father No problems noted. Mother No problems noted. Surgical History Surgical History History of appendectomy Social History Social History Household Members: Family Housing: House Do you presently have visiting nurse or other home services: No Alcohol intake: current Alcohol intake frequency: 3 or more drinks per day Alcohol type: hard liquor Patient Tobacco Use Status: Tobacco use Unknown Substance Use Type: Marijuana service: No Meds Allergies Allergy/AdvReac Type Severity Reaction Status Date / Time cefaclor [From Ceclor] AdvReac Unknown Verified 09/09/23 16:11 Active Medications: Current Medications Acetaminophen (Acetaminophen 325 Mg Tablet) 650 mg PO Q6H PRN PRN Reason: Pain, Mild (Pain Scale 1-3), fever or headache Amlodipine Besylate (Amlodipine Besylate 2.5 Mg Tablet) 7.5 mg PO BEDTIME JAQUELINE; Protocol Last Admin: 09/10/23 04:28 Dose: 7.5 mg Enoxaparin Sodium (Enoxaparin Sodium 40 Mg/0.4 Ml Syringe) 40 mg SUBCUT Q24H JAQUELINE Last Admin: 09/10/23 08:20 Dose: 40 mg Hydromorphone HCl (Hydromorphone Hcl 1 Mg/Ml Syringe) 1 mg IVPUSH Q4H PRN; Protocol PRN Reason: Pain, Severe (Pain Scale 7-10) Last Admin: 09/10/23 12:18 Dose: 1 mg Thiamine HCl 100 mg/ Sodium (Chloride) 101 mls @ 202 mls/hr IV DAILY JAQUELINE Last Infusion: 09/10/23 08:50 Dose: Infused Lactated Ringer's (Lr) 1,000 mls @ 150 mls/hr IVCONT .Q6H40M JAQUELINE Last Admin: 09/10/23 11:27 Dose: 150 mls/hr Labetalol HCl (Labetalol Hcl 100 Mg/20 Ml Vial) 20 mg IVPUSH Q4H PRN PRN Reason: SBP > 170 Ondansetron HCl (Ondansetron Hcl 4 Mg/2 Ml Vial) 4 mg IVPUSH Q6H PRN PRN Reason: Nausea and Vomiting Last Admin: 09/10/23 10:57 Dose: 4 mg Pantoprazole Sodium (Pantoprazole Sodium 40 Mg/10 Ml Vial) 40 mg IVPUSH BID [facility] Last Admin: 09/10/23 08:20 Dose: 40 mg Pharmacy Consult (Consult Rx Etoh Phenob Im/Po) 1 each MISCELLANE ONCE PRN; Protocol PRN Reason: Consult order Phenobarbital (Phenobarbital 15 Mg Tablet) 45 mg PO BID [facility]; Protocol Stop: 09/12/23 21:01 Phenobarbital (Phenobarbital 30 Mg Tablet) 30 mg PO BID [facility]; Protocol Stop: 09/14/23 21:01 Phenobarbital (Phenobarbital 30 Mg Tablet) 30 mg PO DAILY [facility]; Protocol Stop: 09/16/23 09:01 Phenobarbital Sodium (Phenobarbital Sodium 130 Mg/Ml Vial Im Q3hx2) 175 mg IM Q3H JAQUELINE; Protocol Stop: 09/10/23 18:01 Simethicone (Simethicone 80 Mg Tab.Chew) 80 mg PO Q6H PRN PRN Reason: flatulence Sodium Chloride (0.9 % Sodium Chloride Flush 3 Ml Syringe) 3 ml IVFLUSH QSHIFT [facility] Last Admin: 09/10/23 08:20 Dose: 3 ml Physical Exam Vital Signs: Vital Signs: Last Vital Signs Temp 97.2 F 09/10/23 11:01 Pulse 100 09/10/23 11:01 Resp 18 09/10/23 11:01 BP 150/90 H 09/10/23 11:01 Pulse Ox 97 09/10/23 11:01 O2 Del Method Room Air 09/10/23 11:01 O2 Flow Rate 99 09/10/23 03:45 BMI result Body Mass Index 22.3 Const: General: no acute distress Nutritional Appearance: average body habitus Orientation/consciousness: patient oriented x3 Limitations: no limitations HEENT: Head: Yes normal to inspection Ears: hearing grossly normal bilaterally Eyes: Sclerae: sclerae normal Pupils: Equal, round and reactive pupils present Neck: Neck: Yes normal visual inspection Chest: Chest palpation & inspection: normal inspection of the chest Resp: Effort & Inspection: normal respiratory effort Auscultation: clear to auscultation bilaterally Cardio: Palpation: normal PMI Rate: regular rate Rhythm: regular rhythm Heart sounds: S1 normal heart sound present, S2 normal heart sound present and no murmurs GI: Palpation (GI): Soft to palpation, Tenderness to palpation present (GI) ([id number] epigastric tenderness without rebound) and No hepatosplenomegaly present Auscultation: normal bowel sounds Rectal Exam - Male: Yes deferred Skin: General skin exam: no rashes or lesions noted Neuro: General: patient oriented x3, gait normal and moves all extremities Cranial nerves: Yes Equal, round and reactive pupils present Psych: Appearance: grossly normal Mental Status: mental status grossly normal Results Labs 09/13/23 06:28 09/15/23 08:42 Labs: Short CBC 09/09/23 09/10/23 Range/Units 16:28 06:16 WBC 16.9 H 13.9 H (4.8-10.8) X10*3/uL Hgb 17.9 14.8 (14.0-18.0) g/dl Hct 51.2 42.9 (42.0-52.0) % Plt Count 246 173 D (160-400) X10*3/uL BMP 09/09/23 09/10/23 09/10/23 19:20 01:25 06:16 Sodium 142 139 137 Potassium 3.6 3.8 3.8 Chloride 108 110 H 109 H Carbon Dioxide 17 L 17 L 19 L BUN 6 L 6 L 5 L Creatinine 0.85 0.76 0.77 Calcium 8.0 L 8.1 L 8.1 L Liver Function 09/09/23 09/10/23 Range/Units 19:20 06:16 Total Bilirubin 0.9 0.9 (0.0-1.0) mg/dL Direct Bilirubin 0.4 (0.0-0.5) mg/dL AST 119 H 69 H (5-37) U/L ALT 239 H 171 H (0-40) U/L Alkaline Phosphatase 83 68 (39-117) U/L Albumin 4.2 3.6 (3.5-5.0) g/dL Urine 09/09/23 Range/Units 17:07 Urine Color Yellow Urine Appearance Clear Urine pH 6.5 (5.0-9.0) Ur Specific [place] >= 1.030 H (1.005-1.025) Urine Protein 30 (1+) H (Neg-Trace) mg/dL Urine Glucose (UA) Negative (Negative) mg/dL Assessment and Plan (1) Acute pancreatitis: Status: Acute (2) Elevated levels of transaminase & lactic acid dehydrogenase: Status: Acute Plan 43 YM with history of alcohol abuse admitted to [facility] [place] on 09/09/23 with 1st episode of acute pancreatitis He admits to drinking 5-7 shots of vodka per day (has been drinking x 5 years) Family hx is positive for Pancreatitis and ETOH use in his brother. Pancreatitis is likely due to ETOH abuse. Other possibilites include gallstones or hypertriglyceridemia. Abd CT scan showed Inflammatory changes surrounding the entire pancreas with fluid in the peripancreatic space (largest collection of fluid is just beneath the pancreas on the left measuring 5.8 x 2.9 x 1.7 cm with ill-defined borders). The pancreas enhances normally. No pancreatic ductal dilatation or pancreatic calcificationsare seen. RECOMMENDATIONS: 1. Agree with IV pain medications, bowel rest and CIWA protocol for ETOH withdrawl 2. Lipid panel added to am labs 3. Abd US to look for non radiopaque gallstones not visible on CT scan. 4. Follow lipase daily and can start a clear liquid diet once lipase is near normal and abdominal pain has improved. 5. FU CT scan in 3-4 weeks (as an outpatient) to ensure fluid collections are resolving 6. Pt is interested in ETOH rehab so he can quit drinking ADDENDUM: Pt was discharged on 09/15/23 Hospital Course (from discharge summary): From the history and physical by the admitting hospitalist, Pauly Birmingham MD, 09/09/23: J Luis Mcguire is a very pleasant 43 years old man with past medical history significant for alcohol abuse presents to the emergency department complaining of epigastric pain that has been on and off over the last 4 days. Today he experience burning chest pain with deep inspiration associated with multiple events of nonbloody/non coffee-ground vomiting. He reported suggestive fever. Denies diarrhea, headache, shortness of breath or cough. Last bowel movement was yesterday was normal. Abdominal past medical history significant for appendectomy. He drinks 4-5 shots of vodka. Last alcoholic drink was today around lunchtime. Denied illicit drug use. Smoke marijuana in occasions. Hospital course by problem: acute EtOH pancreatitis with peripancreatic fluid collection [possibly pseudocyst] - treated with bowel rest then advanced gradually to solids with good tolerance; pain, nausea, and vomiting resolved completely. - per GI consultation, repeat CT in 3-4 wk to assess fluid collection which may represent a pseudocyst transaminasemia - HBV-immune, HCV-negative; likely from EtOH + pancreatitis; repeat LFTs in 1 week SIRS criteria - due to pancreatitis; no evidence of infection hypoK hypoMg - repleted SVT - had 1 brief episode; started on metoprolol tartrate 50 mg bid and did not recur AUD with withdrawal - treated with phenobarbital taper and started on vitamin supplementation. Addiction Medicine consulted and should follow up with [facility] [place] [facility] as outpatient. Procedures Date of Service Date of Service: 09/18/23
--- NOTE | 2023-09-10 13:22 | P.PNIM_ITS ---
Subjective Subjective Date of Service: 09/10/23 Interval History: seen and examined this morning follow up for acute pancreatitis Continues to have epigastric abdominal pain. No nausea or vomiting Does not feel alcohol withdrawal symptoms at this time Review of Systems Review of Systems: Yes all other systems are reviewed and are negative Constitutional Constitutional: Denies chills and Denies fever(s) Cardiovascular Cardiovascular: Denies chest pain and Denies dyspnea Respiratory Respiratory: Denies cough and Denies dyspnea Gastrointestinal Gastrointestinal: Reports abdominal pain, Denies nausea and Denies vomiting Physical Exam 2 Vital Signs: Vital Signs: Last Vital Signs Temp 97.2 F 09/10/23 11:01 Pulse 100 09/10/23 11:01 Resp 18 09/10/23 11:01 BP 150/90 H 09/10/23 11:01 Pulse Ox 97 09/10/23 11:01 O2 Del Method Room Air 09/10/23 11:01 O2 Flow Rate 99 09/10/23 03:45 BMI result Body Mass Index 22.3 Const: General: cooperative, alert and awake Nutritional Appearance: a verage body habitus Orientation/consciousness: patient oriented x3 Resp: Effort & Inspection: normal respiratory effort, able to speak in complete sentences, no respiratory distress and no use of accessory muscles Cardio: Rate: tachycardic GI: Other: Tender to palpation in the epigastric region, nondistended, positive bowel sounds, no rebound Neuro: General: patient oriented x3, moves all extremities and CN's II-XI intact bilaterally Extrem: General: Yes no pedal edema Objective Data Active Medications Acetaminophen (Acetaminophen 325 Mg Tablet) 650 mg PO Q6H PRN PRN Reason: Pain, Mild (Pain Scale 1-3), fever or headache Amlodipine Besylate (Amlodipine Besylate 2.5 Mg Tablet) 7.5 mg PO BEDTIME JAQUELINE; Protocol Last Admin: 09/10/23 04:28 Dose: 7.5 mg Documented By: JERAMY Enoxaparin Sodium (Enoxaparin Sodium 40 Mg/0.4 Ml Syringe) 40 mg SUBCUT Q24H JAQUELINE Last Admin: 09/10/23 08:20 Dose: 40 mg Documented By: ANAM Hydromorphone HCl (Hydromorphone Hcl 1 Mg/Ml Syringe) 1 mg IVPUSH Q4H PRN; Protocol PRN Reason: Pain, Severe (Pain Scale 7-10) Last Admin: 09/10/23 12:18 Dose: 1 mg Documented By: CHARLOTTE Thiamine HCl 100 mg/ Sodium (Chloride) 101 mls @ 202 mls/hr IV DAILY JAQUELINE Last Infusion: 09/10/23 08:50 Dose: Infused Documented By: CHARLOTTE Lactated Ringer's (Lr) 1,000 mls @ 150 mls/hr IVCONT .Q6H40M JAQUELINE Last Admin: 09/10/23 11:27 Dose: 150 mls/hr Documented By: CHARLOTTE Labetalol HCl (Labetalol Hcl 100 Mg/20 Ml Vial) 20 mg IVPUSH Q4H PRN PRN Reason: SBP > 170 Ondansetron HCl (Ondansetron Hcl 4 Mg/2 Ml Vial) 4 mg IVPUSH Q6H PRN PRN Reason: Nausea and Vomiting Last Admin: 09/10/23 10:57 Dose: 4 mg Documented By: CHARLOTTE Pantoprazole Sodium (Pantoprazole Sodium 40 Mg/10 Ml Vial) 40 mg IVPUSH BID [facility] Last Admin: 09/10/23 08:20 Dose: 40 mg Documented By: ANAM Pharmacy Consult (Consult Rx Etoh Phenob Im/Po) 1 each MISCELLANE ONCE PRN; Protocol PRN Reason: Consult order Phenobarbital (Phenobarbital 15 Mg Tablet) 45 mg PO BID JAQUELINE; Protocol Stop: 09/12/23 21:01 Phenobarbital (Phenobarbital 30 Mg Tablet) 30 mg PO BID JAQUELINE; Protocol Stop: 09/14/23 21:01 Phenobarbital (Phenobarbital 30 Mg Tablet) 30 mg PO DAILY [facility]; Protocol Stop: 09/16/23 09:01 Phenobarbital Sodium (Phenobarbital Sodium 130 Mg/Ml Vial Im Q3hx2) 175 mg IM Q3H JAQUELINE; Protocol Stop: 09/10/23 18:01 Simethicone (Simethicone 80 Mg Tab.Chew) 80 mg PO Q6H PRN PRN Reason: flatulence Sodium Chloride (0.9 % Sodium Chloride Flush 3 Ml Syringe) 3 ml IVFLUSH QSHIFT [facility] Last Admin: 09/10/23 08:20 Dose: 3 ml Documented By: ANMA Labs 09/10/23 06:16 09/10/23 06:16 Labs: Laboratory Results - last 24 hr 09/09/23 09/09/23 09/09/23 16:28 16:55 17:07 MCV 96.8 MCH 33.8 H MCHC 35.0 RDW 12.2 Plt Count 246 MPV 10.8 Immature Gran % (Auto) 0.8 H Neut % (Auto) 72.8 Lymph % (Auto) 17.5 L Whitman % (Auto) 7.4 Eos % (Auto) 0.8 Baso % (Auto) 0.7 Lymph # (Auto) 3.0 Whitman # (Auto) 1.3 H Eos # (Auto) 0.1 Baso # (Auto) 0.1 Abs Immat Gran (auto) 0.13 H Absolute Neuts (auto) 12.3 H Absolute Nucleated RBC 0.000 Nucleated RBC % (auto) 0.0 PT 10.9 L INR 0.9 Anion Gap Estim Creat Clear Calc Estimated GFR Random Glucose Lactic Acid Lactic Acid F/U @ 2Hr Calcium Magnesium Total Bilirubin Direct Bilirubin AST ALT Alkaline Phosphatase Troponin I High Sens < 2.7 C-Reactive Protein 0.57 H Total Protein Albumin Lipase Urine Color Yellow Urine Appearance Clear Urine pH 6.5 Ur Specific [place] >= 1.030 H Urine Protein 30 (1+) H Urine Glucose (UA) Negative Urine Ketones 15 Urine Blood Negative Urine Nitrite Negative Ur Leukocyte Esterase Negative Urine RBC 0-2 Urine WBC 0-5 Ur Squamous Epith Cells 0-2 Urine Bacteria None Seen Hyaline Casts 3-5 Urine Opiates Screen Not Detected Ur Buprenorphine Scrn Not Detected Ur Oxycodone Screen Not Detected Urine Methadone Screen Not Detected Urine Fentanyl Screen POSITIVE H Ur Barbiturates Screen Not Detected Ur Phencyclidine Scrn Not Detected Ur Amphetamines Screen Not Detected U Benzodiazepines Scrn Not Detected Urine Cocaine Screen Not Detected U Marijuana (THC) Screen POSITIVE H Ethyl Alcohol 126 COVID-19 (MALA) Negative COVID-19 Clin Com See Note 09/09/23 09/09/23 09/10/23 19:20 Unknown 00:58 MCV MCH MCHC RDW Plt Count MPV Immature Gran % (Auto) Neut % (Auto) Lymph % (Auto) Whitman % (Auto) Eos % (Auto) Baso % (Auto) Lymph # (Auto) Whitman # (Auto) Eos # (Auto) Baso # (Auto) Abs Immat Gran (auto) Absolute Neuts (auto) Absolute Nucleated RBC Nucleated RBC % (auto) PT INR Anion Gap 21 H Estim Creat Clear Calc 117.4 Estimated GFR > 60 Random Glucose 88 Lactic Acid 4.3 H* 0.9 Lactic Acid F/U @ 2Hr 3.6 H* Calcium 8.0 L Magnesium 1.5 L Total Bilirubin 0.9 Direct Bilirubin 0.4 AST 119 H ALT 239 H Alkaline Phosphatase 83 Troponin I High Sens C-Reactive Protein Total Protein 6.7 Albumin 4.2 Lipase 842 H Urine Color Urine Appearance Urine pH Ur Specific [place] Urine Protein Urine Glucose (UA) Urine Ketones Urine Blood Urine Nitrite Ur Leukocyte Esterase Urine RBC Urine WBC Ur Squamous Epith Cells Urine Bacteria Hyaline Casts Urine Opiates Screen Ur Buprenorphine Scrn Ur Oxycodone Screen Urine Methadone Screen Urine Fentanyl Screen Ur Barbiturates Screen Ur Phencyclidine Scrn Ur Amphetamines Screen U Benzodiazepines Scrn Urine Cocaine Screen U Marijuana (THC) Screen Ethyl Alcohol COVID-19 (MALA) COVID-19 Clin Com 09/10/23 09/10/23 01:25 06:16 MCV 98.4 H MCH 33.9 H MCHC 34.5 RDW 12.2 Plt Count 173 D MPV 11.0 Immature Gran % (Auto) 0.5 H Neut % (Auto) 84.2 H Lymph % (Auto) 8.4 L Whit[place] % (Auto) 6.4 Eos % (Auto) 0.2 Baso % (Auto) 0.3 Lymph # (Auto) 1.2 Whitman # (Auto) 0.9 Eos # (Auto) 0.0 Baso # (Auto) 0.0 Abs Immat Gran (auto) 0.07 H Absolute Neuts (auto) 11.7 H Absolute Nucleated RBC 0.000 Nucleated RBC % (auto) 0.0 PT INR Anion Gap 16 13 Estim Creat Clear Calc 131.3 129.5 Estimated GFR > 60 > 60 Random Glucose 115 130 H Lactic Acid Lactic Acid F/U @ 2Hr Calcium 8.1 L 8.1 L Magnesium 1.9 1.9 Total Bilirubin 0.9 Direct Bilirubin AST 69 H ALT 171 H Alkaline Phosphatase 68 Troponin I High Sens C-Reactive Protein Total Protein 5.9 L Albumin 3.6 Lipase 613 H Urine Color Urine Appearance Urine pH Ur Specific [place] Urine Protein Urine Glucose (UA) Urine Ketones Urine Blood Urine Nitrite Ur Leukocyte Esterase Urine RBC Urine WBC Ur Squamous Epith Cells Urine Bacteria Hyaline Casts Urine Opiates Screen Ur Buprenorphine Scrn Ur Oxycodone Screen Urine Methadone Screen Urine Fentanyl Screen Ur Barbiturates Screen Ur Phencyclidine Scrn Ur Amphetamines Screen U Benzodiazepines Scrn Urine Cocaine Screen U Marijuana (THC) Screen Ethyl Alcohol COVID-19 (MALA) COVID-19 Clin Com Assessment and Plan (1) Acute pancreatitis: Status: Acute Plan J Luis Mcguire is a 43 years old man admitted with: Acute alcoholic pancreatitis without evidence of necrosis CT showing surrounding fluid collection, likely pseudocyst Continue NPO, IV fluid Symptomatic therapy as needed with Dilaudid and Zofran IV GI consult pending SIRS criteria, but no sepsis, very low suspicion for acute infection. Lactic acidosis, tachycardia and tachypnea likely secondary to above, alcohol intoxication and dehydration. No antibiotics needed. Continue IV hydration. Elevated transaminases, secondary to alcohol. patient was advised to active to alcohol consumption Trending down Hypomagnesemia, secondary to alcohol abuse. Replete as needed. Continue to monitor magnesium level. Alcohol use disorder with alcohol withdrawal Start phenobarbital protocol continue Thiamine 100 mg IV daily, transitioned to p.o. thiamine when tolerating diet Folic acid and multivitamins when able. Addiction medicine consult. DVT prophylaxis: lovenox Code status: Full Patient needs ongoing stay for alcoholic pancreatitis treatment IV pain meds, IV hydration and close monitoring of vital signs. Quality Stroke Does the patient have a stroke diagnosis?: No VTE Prior VTE?: No VTE Risk Level:: Medical - moderate - high VTE Device Contraindication: Treatment Not Indicated VTE Drug Contraindication: N/A - Med Ordered
--- NOTE | 2023-09-10 13:53 | MHC.RECOVRN ---
AUDIT-C Brief Intervention Pt had positive screen for unhealthy alcohol use on admission, subsequently met with t/w to discuss alcohol use and recovery supports/options. Pt voices concern regarding alcohol use and is aware that drinking at unhealthy levels is known to increase risk of alcohol related health problems. Pt reports 5-7 shots daily x years. Pt expresses how alcohol use has impacted health, including negative impact on physical health. Pt currently admitted for pancreatitis. Pt reports this is first AUD related admission. Reports he has never received tx for AUD in the past. Discussed risk reduction strategies including drinking below the recommended limit. Provided pt with written resources including information on inpatient and outpatient treatment, ILAN, harm reduction, and recovery coaching. Pt plans to review resources and follow up with the [facility]. Pt provided with t/w contact information if questions or concerns arise. Denies other questions or concerns at this time.
[2023-09-10] MEDS: PHENobarbitaL sodium 130 MG/ML VIAL IM Q3Hx2 175 MG IM ×2 (15:09→18:03)
[2023-09-10] MEDS: Melatonin 3 MG TABLET 6 MG PO (20:30)
[2023-09-11] MEDS: HYDROmorphone HCl 1 MG/ML SYRINGE IVPUSH ×4 (03:29→21:53)
[2023-09-11] MEDS: ondansetron HCL 4 MG/2 ML VIAL IVPUSH ×3 (03:30→21:04)
[2023-09-11] MEDS: Simethicone 80 MG TAB.CHEW PO ×2 (03:33→09:40)
[2023-09-11 04:00] VITALS: BP 143/108; PULSE 116; RESP 23; TEMP 36.4; O2SAT 98
[2023-09-11] MEDS: Pantoprazole Sodium 40 MG/10 ML VIAL IVPUSH (05:43)
[2023-09-11] MEDS: Lactated Ringers 1,000 ML 150 ML IVCONT ×2 (05:46)
[2023-09-11 06:38] LABS: Hematocrit 41.5 % (42.0-52.0); Hemoglobin 14.1 g/dl (14.0-18.0); Mean Corpuscular Hemoglobin 33.3 pg (27.0-33.0); Mean Corpuscular Volume 97.9 fL (80.0-98.0); Platelet Count 151 X10*3/uL (160-400); Red Blood Count 4.24 X10*6/uL (4.60-5.80); Red Cell Distribution Width 11.9 % (11.0-16.0); White Blood Count 14.1 X10*3/uL (4.8-10.8)
--- NOTE | 2023-09-11 07:00 | CA_ITS ---
Transthoracic Echocardiogram Patient (Last, First, Middle): J Luis Mcguire, Gender: Male Date of : 1980 Age: 43 Procedure Date: 09/11/2023 Procedure Type: Transthoracic [place] [facility] [place]: 180.34 cm Weight: 72.58 kg BSA: 1.92 m2 Heart Rate: 105 bpm BP: 154 / 90 mmHg Corrugated Box Machine Operator: IRVING Referring MD: Charlotte PATHAK Symptoms: tachycardia Study Quality: Fair ECG Rhythm: Tachycardia Conclusions: - The left ventricular systolic function is normal. The calculated ejection fraction is 55% by biplane method. - No obvious valvular pathology seen on this study. Findings Left Ventricle Normal left ventricular cavity size. There is normal left ventricular wall thickness. The left ventricular systolic function is normal. The calculated ejection fraction is 55% by biplane method. There is no evidence of regional wall motion abnormalities. Diastolic function is normal for age. Right Ventricle Normal right ventricular cavity size and systolic function. Atria Both atria are normal in size. Aortic Valve There is a normal trileaflet aortic valve. There is no aortic valve stenosis. There is no aortic valve regurgitation. Mitral Valve The mitral valve appears normal. There is no mitral valve regurgitation. There is no mitral valve stenosis. Pulmonic Valve The pulmonic valve is likely normal. Tricuspid Valve There is trace tricuspid valve regurgitation. Tricuspid regurgitation envelope is inadequate for calculation of right ventricular systolic pressure. Great Vessels The asc aorta is normal in size. Venous The inferior vena cava is normal in size and collapses greater than 50% with inspiration. Pericardium/Pleural There is no evidence of pericardial effusion. Prior Study Comparison No prior study available for comparison. Recommendations, Care & Conclusions No obvious valvular pathology seen on this study. Measurements 2D Linear Measurements IVSd: 0.95 0.6-0.9/0.6-1.0 cm LVIDd: 3.81 3.9-5.3/4.2-5.9 cm LVIDd Index: 1.98 2.4-3.2/2.2-3.1 cm/m2 LVIDs: 2.72 2.0-3.6 cm LVPWd: 0.97 0.7-1.1 cm LA Diam: 3.20 2.7-3.8/3.0-4.0 cm LAIDs Index: 1.67 1.5-2.3 cm/m2 LV Mass: 137.63 67-162/88-224 g LV Mass Index: 71.68 43-95/49-115 g/m2 LVOT Diam: 2.00 3.0+(-)1.3 cm 2D Systolic Function EF 4C: 57.60 >55% EF 2C: 57.30 >55% EF BiP: 55.30 >55% Mitral Valve MV Pk E: 0.74 MV PK A: 0.62 MV Decel Time: 147.00 E/A: 1.20 E'Lateral: 12.00 E'Medial: 9.79 E/E' Med: 7.60 E/E' Lat: 6.20 PHT: 43.00 MVA PHT: 5.12 Decel [place]: 5.04 LVOT LVOT Pk Balwinder: 1.27 LVOT Mn Balwinder: 0.88 LVOT VTI: 0.21 LVOT Pk Grad: 6.00 LVOT Mn Grad: 4.00 LVOT Diam: 2.00 LVOT Area: 3.14 Diastolic Function MV Pk E: 0.74 MV Pk A: 0.62 E/A: 1.20 E'Medial: 9.79 E/E' Med: 7.60 E' Laterial: 12.00 E/E' Lat: 6.20 Right Ventricle TAPSE (mm): 21.30 TVS' Balwinder: 13.10 Tricuspid Valve RA Press: 3.00 Great Vessels Aorta Sinus of Valsalva: 3.00 2.0-3.5 cm Ao Asc: 2.90 2.1-3.4 cm Pulmonary Valve PV Pk Balwinder: 0.81 Peak PV Grad: 3.00 Updated in Other Vendor System with Status of Final Ramo Ann MD electronically signed on 09/11/2023 2:28:11 PM with status of Final
[2023-09-11 07:15] LABS: Anion Gap 15 (12-20); Blood Urea Nitrogen 3 mg/dL (9-16); Carbon Dioxide 25 mmol/L (22-29); Chloride 101 mmol/L (96-108); Creatinine Clr Calc Pharmacy 136.6; Estimated Glomerular Filt Rate > 60; Glucose Random 88 mg/dL (60-115); Potassium 4.6 mmol/L (3.3-5.1); Sodium 136 mmol/L (135-145)
[2023-09-11 08:00] VITALS: BP 154/90; PULSE 110; RESP 18; TEMP 36.2; O2SAT 97
[2023-09-11 08:05] LABS: Alanine Aminotransferase 190 U/L (0-40); Albumin Level 3.7 g/dL (3.5-5.0); Alkaline Phosphatase 89 U/L (39-117); Aspartate Amino Transferase 145 U/L (5-37); Bilirubin Direct 1.1 mg/dL (0.0-0.5); Magnesium 1.7 mg/dL (1.6-2.6); Total Protein 6.2 g/dL (6.5-8.0)
[2023-09-11] MEDS: PHENobarbitaL 15 MG TABLET 45 MG PO ×2 (08:14→20:56)
[2023-09-11] MEDS: Folic Acid 1 MG TABLET PO (08:14)
[2023-09-11] MEDS: Enoxaparin Sodium 40 MG/0.4 ML SYRINGE SUBCUT (08:15)
[2023-09-11] MEDS: Thiamine HCL 100 MG in 0.9 % Sodium Chloride 100 ML 202 MG IV (08:15)
[2023-09-11] MEDS: 0.9 % Sodium Chloride Flush 3 ML SYRINGE IVFLUSH ×3 (08:15→21:01)
[2023-09-11 08:19] LABS: TSH reflex Free T4 1.69 uIU/mL (0.32-4.0)
[2023-09-11 10:06] LABS: Cholesterol 163 mg/dL (<200); HDL Cholesterol 43 mg/dL (>40); LDL Cholesterol Calculated 97 mg/dL (<100); Triglycerides 116 mg/dL (<150)
--- NOTE | 2023-09-11 10:26 | MHC.CM.PN ---
Per ROUNDS discussion, Patient is not yet medically cleared for dc (advancing diet/starting with clear liquids today); home is the goal and CM will continue to follow.
--- NOTE | 2023-09-11 10:28 | MHC.CM.PN ---
Per ROUNDS discussion, Patient is having a MRI today and may be cleared for dc soon; home is the goal and CM will continue to follow.
[2023-09-11 10:52] LABS: Lipase 135 U/L (8-78)
--- NOTE | 2023-09-11 11:31 | P.PNIM_ITS ---
Subjective Subjective Date of Service: 09/11/23 Interval History: Seen and examined this morning Follow-up for acute alcoholic pancreatitis Abdominal pain improving No nausea, no vomiting, CIWA remains low Review of Systems Review of Systems: Yes all other systems are reviewed and are negative Constitutional Constitutional: Denies chills and Denies fever(s) Cardiovascular Cardiovascular: Denies chest pain, Denies palpitations and Denies dyspnea Respiratory Respiratory: Denies cough and Denies dyspnea Gastrointestinal Gastrointestinal: Denies nausea and Denies vomiting Endocrine Endocrine: Denies palpitations Physical Exam 2 Vital Signs: Vital Signs: Last Vital Signs Temp 97.2 F 09/11/23 08:00 Pulse 110 H 09/11/23 08:00 Resp 18 09/11/23 08:00 BP 154/90 H 09/11/23 08:00 Pulse Ox 97 09/11/23 08:00 O2 Del Method Room Air 09/11/23 08:00 O2 Flow Rate 99 09/10/23 03:45 BMI result Body Mass Index 22.3 Const: General: cooperative, alert and awake Nutritional Appearance: a verage body habitus Orientation/consciousness: patient oriented x3 Resp: Effort & Inspection: normal respiratory effort, able to speak in complete sentences, no respiratory distress and no use of accessory muscles Cardio: Rate: tachycardic GI: Other: soft, improving epigastric tenderness, nondistended, positive bowel sounds, no rebound Neuro: General: patient oriented x3, moves all extremities and CN's II-XI intact bilaterally Extrem: General: Yes no pedal edema Objective Data Active Medications Acetaminophen (Acetaminophen 325 Mg Tablet) 650 mg PO Q6H PRN PRN Reason: Pain, Mild (Pain Scale 1-3), fever or headache Amlodipine Besylate (Amlodipine Besylate 2.5 Mg Tablet) 7.5 mg PO BEDTIME JAQUELINE; Protocol Last Admin: 09/10/23 20:30 Dose: 7.5 mg Documented By: JERAMY Enoxaparin Sodium (Enoxaparin Sodium 40 Mg/0.4 Ml Syringe) 40 mg SUBCUT Q24H JAQUELINE Last Admin: 09/11/23 08:15 Dose: 40 mg Documented By: WILBERT Folic Acid (Folic Acid 1 Mg Tablet) 1 mg PO DAILY [facility] Last Admin: 09/11/23 08:14 Dose: 1 mg Documented By: WILBERT Hydromorphone HCl (Hydromorphone Hcl 1 Mg/Ml Syringe) 1 mg IVPUSH Q4H PRN; Protocol PRN Reason: Pain, Severe (Pain Scale 7-10) Last Admin: 09/11/23 03:29 Dose: 1 mg Documented By: JERAMY Thiamine HCl 100 mg/ Sodium (Chloride) 101 mls @ 202 mls/hr IV DAILY [facility] Last Infusion: 09/11/23 11:10 Dose: Infused Documented By: WILBERT Lactated Ringer's (Lr) 1,000 mls @ 150 mls/hr IVCONT .Q6H40M [facility] Last Admin: 09/11/23 05:46 Dose: 150 mls/hr Documented By: JERAMY Labetalol HCl (Labetalol Hcl 100 Mg/20 Ml Vial) 20 mg IVPUSH Q4H PRN PRN Reason: SBP > 170 Melatonin (Melatonin 3 Mg Tablet) 6 mg PO BEDTIME PRN PRN Reason: Insomnia Last Admin: 09/10/23 20:30 Dose: 6 mg Documented By: JERAMY Ondansetron HCl (Ondansetron Hcl 4 Mg/2 Ml Vial) 4 mg IVPUSH Q6H PRN PRN Reason: Nausea and Vomiting Last Admin: 09/11/23 03:30 Dose: 4 mg Documented By: JERAMY Pantoprazole Sodium (Pantoprazole Sodium 40 Mg/10 Ml Vial) 40 mg IVPUSH DAILY@0630 [facility] Last Admin: 09/11/23 05:43 Dose: 40 mg Documented By: JERAMY Pharmacy Consult (Consult Rx Etoh Phenob Im/Po) 1 each MISCELLANE ONCE PRN; Protocol PRN Reason: Consult order Phenobarbital (Phenobarbital 15 Mg Tablet) 45 mg PO BID [facility]; Protocol Stop: 09/12/23 21:01 Last Admin: 09/11/23 08:14 Dose: 45 mg Documented By: WILBERT Phenobarbital (Phenobarbital 30 Mg Tablet) 30 mg PO BID [facility]; Protocol Stop: 09/14/23 21:01 Phenobarbital (Phenobarbital 30 Mg Tablet) 30 mg PO DAILY [facility]; Protocol Stop: 09/16/23 09:01 Simethicone (Simethicone 80 Mg Tab.Chew) 80 mg PO Q6H PRN PRN Reason: flatulence Last Admin: 09/11/23 09:40 Dose: 80 mg Documented By: WILBERT Sodium Chloride (0.9 % Sodium Chloride Flush 3 Ml Syringe) 3 ml IVFLUSH QSHIFT [facility] Last Admin: 09/11/23 08:15 Dose: 3 ml Documented By: WILBERT Labs 09/11/23 06:11 09/11/23 06:11 Labs: Laboratory Results - last 24 hr 09/11/23 06:11 MCV 97.9 MCH 33.3 H MCHC 34.0 RDW 11.9 Plt Count 151 L MPV 11.0 Absolute Nucleated RBC 0.000 Nucleated RBC % (auto) 0.0 Anion Gap 15 Estim Creat Clear Calc 136.6 Estimated GFR > 60 Random Glucose 88 Calcium 9.0 D Magnesium 1.7 Total Bilirubin 2.0 H Direct Bilirubin 1.1 H AST 145 H ALT 190 H Alkaline Phosphatase 89 Total Protein 6.2 L Albumin 3.7 Triglycerides 116 Cholesterol 163 LDL Cholesterol, Calc 97 HDL Cholesterol 43 Lipase 135 H TSH 1.69 Microbiology Microbiology Results: Microbiology 09/09/23 16:32 Blood Culture - Preliminary Blood - Venous No growth after 24 hours. 09/09/23 16:32 Blood Culture - Preliminary Blood - Venous No growth after 24 hours. Assessment and Plan (1) Acute pancreatitis: Status: Acute Plan J Luis Mcguire is a 43 years old man admitted with: Acute alcoholic pancreatitis without evidence of necrosis CT showing surrounding fluid collection, likely pseudocyst US with no evidence of gallstones, triglycerides 116 lipase trending down upgrade to clear liquid diet Symptomatic therapy as needed with Dilaudid and Zofran IV GI following - recommend outpatient follow-up CT scan in 3-4 weeks to assess fluid collection SIRS criteria, but no sepsis, very low suspicion for acute infection. Lactic acidosis, tachycardia and tachypnea likely secondary to above, alcohol intoxication and dehydration. No antibiotics needed. Continue IV hydration. Elevated transaminases, secondary to alcohol. patient was advised to active to alcohol consumption LFTs trending up today repeat LFTs in am Hypomagnesemia, secondary to alcohol abuse. Replete as needed. Continue to monitor magnesium level. sinus tachycardia pt reports chronic tachycardia since childhood although denies ever seeing a manager interface and does not follow regularly with PCP Pain under adequate control, no significant anemia, afebrile, TSH within normal limits will obtain echocardiogram given underlying alcoholism to rule out cardiomyopathy Alcohol use disorder with alcohol withdrawal Start phenobarbital protocol transitioned to p.o. thiamine when tolerating diet Folic acid and multivitamins when able. Addiction medicine consult - resources provided HTN continue norvasc DVT prophylaxis: lovenox Code status: Full Patient needs ongoing stay for alcoholic pancreatitis treatment IV pain meds, IV hydration and close monitoring of vital signs. Quality Stroke Does the patient have a stroke diagnosis?: No VTE Prior VTE?: No VTE Risk Level:: Medical - moderate - high VTE Device Contraindication: Treatment Not Indicated VTE Drug Contraindication: N/A - Med Ordered
[2023-09-11 11:50] VITALS: BP 157/102; PULSE 104; RESP 18; TEMP 36.4; O2SAT 98
[2023-09-11] MEDS: Magnesium Oxide 400 MG TABLET PO ×2 (12:32→17:24)
[2023-09-11] MEDS: Lactated Ringers 1,000 ML 125 ML IVCONT ×2 (12:40→20:59)
[2023-09-11 16:00] VITALS: BP 141/81; PULSE 102; RESP 18; TEMP 36.3; O2SAT 99
[2023-09-11 19:51] VITALS: BP 138/82; PULSE 112; RESP 22; TEMP 37.4; O2SAT 96
[2023-09-11 20:56] VITALS: BP 157/110
[2023-09-11] MEDS: amLODIPine Besylate 2.5 MG TABLET 7.5 MG PO (20:56)
[2023-09-11] MEDS: Melatonin 3 MG TABLET 6 MG PO (21:52)
[2023-09-12] VITALS (9 sets, daily range): BP systolic 116–145; BP diastolic 80–100; PULSE 86–120; RESP 20; TEMP 36.1–37.1; O2SAT 96–100
[2023-09-12] MEDS: Acetaminophen 325 MG TABLET 650 MG PO ×2 (03:37→18:17)
[2023-09-12] MEDS: Pantoprazole Sodium 40 MG/10 ML VIAL IVPUSH (05:47)
[2023-09-12] MEDS: oxyCODONE HCl Immed Release 5 MG TABLET PO (05:47)
[2023-09-12] MEDS: Lactated Ringers 1,000 ML 125 ML IVCONT (05:49)
[2023-09-12] MEDS: Simethicone 80 MG TAB.CHEW PO ×2 (05:52→16:38)
[2023-09-12 06:34] LABS: Hematocrit 39.8 % (42.0-52.0); Hemoglobin 13.9 g/dl (14.0-18.0); Mean Corpuscular HGB Conc 34.9 g/dl (31.0-36.0); Mean Corpuscular Hemoglobin 33.5 pg (27.0-33.0); Mean Corpuscular Volume 95.9 fL (80.0-98.0); Mean Platelet Volume 11.5 fL (9.4-12.4); Platelet Count 151 X10*3/uL (160-400); Red Blood Count 4.15 X10*6/uL (4.60-5.80); Red Cell Distribution Width 11.5 % (11.0-16.0); White Blood Count 12.7 X10*3/uL (4.8-10.8)
[2023-09-12 06:53] LABS: Alanine Aminotransferase 226 U/L (0-40); Albumin Level 3.8 g/dL (3.5-5.0); Alkaline Phosphatase 120 U/L (39-117); Aspartate Amino Transferase 205 U/L (5-37); Bilirubin Direct 0.9 mg/dL (0.0-0.5); Total Protein 6.8 g/dL (6.5-8.0)
[2023-09-12] MEDS: Folic Acid 1 MG TABLET PO (08:38)
[2023-09-12] MEDS: Enoxaparin Sodium 40 MG/0.4 ML SYRINGE SUBCUT (08:38)
[2023-09-12] MEDS: Thiamine HCL 100 MG TABLET PO (08:38)
[2023-09-12] MEDS: Magnesium Oxide 400 MG TABLET PO ×2 (08:38→16:34)
[2023-09-12] MEDS: PHENobarbitaL 15 MG TABLET 45 MG PO ×2 (08:38→21:21)
[2023-09-12] MEDS: 0.9 % Sodium Chloride Flush 3 ML SYRINGE IVFLUSH ×2 (08:40→16:31)
[2023-09-12 10:28] LABS: Anion Gap 12 (12-20); Blood Urea Nitrogen 4 mg/dL (9-16); Calcium 9.8 mg/dL (8.4-10.2); Carbon Dioxide 26 mmol/L (22-29); Chloride 99 mmol/L (96-108); Creatinine Clr Calc Pharmacy 134.8; Estimated Glomerular Filt Rate > 60; Glucose Random 103 mg/dL (60-115); Potassium 3.1 mmol/L (3.3-5.1); Sodium 134 mmol/L (135-145)
[2023-09-12] MEDS: Potassium Chloride ER 20 MEQ TAB.ER.PRT 40 MEQ PO ×2 (11:06→21:21)
--- NOTE | 2023-09-12 11:50 | PC.NURSE ---
patient experienced SVT HR 200 with symptoms of heart fluttering. Patient sustained SVT less than 2 minutes and broke, HR is currently 99 in SR. notified, new order for IV magnesium.
--- NOTE | 2023-09-12 11:52 | HO.PM.IMPN ---
Subjective Subjective Date of Service: 09/12/23 Interval History: Seen and examined this morning Follow-up for acute alcoholic pancreatitis no abdominal pain today, no nausea or vomiting had an episode of SVT, HR in the 200s with palpitations Review of Systems Review of Systems: Yes all other systems are reviewed and are negative Constitutional Constitutional: Denies chills and Denies fever(s) Cardiovascular Cardiovascular: Denies chest pain, Reports palpitations and Denies dyspnea Respiratory Respiratory: Denies cough and Denies dyspnea Gastrointestinal Gastrointestinal: Denies abdominal pain, Denies nausea and Denies vomiting Endocrine Endocrine: Reports palpitations Physical Exam Vital Signs: Vital Signs: Last Vital Signs Temp 96.9 F 09/12/23 11:03 Pulse 118 H 09/12/23 11:03 Resp 20 09/12/23 11:03 BP 124/92 H 09/12/23 11:03 Pulse Ox 96 09/12/23 11:03 O2 Del Method Room Air 09/12/23 11:03 O2 Flow Rate 99 09/10/23 03:45 BMI result Body Mass Index 22.3 Const: General: cooperative, comfortable, no acute distress, alert and awake Nutritional Appearance: average body habitus Orientation/consciousness: patient oriented x3 Resp: Effort & Inspection: normal respiratory effort, able to speak in complete sentences, no respiratory distress and no use of accessory muscles Cardio: Rate: tachycardic GI: Other: soft, non-tender, nondistended, positive bowel sounds, no rebound Neuro: General: patient oriented x3 Extrem: General: Yes no pedal edema Objective Data Active Medications Acetaminophen (Acetaminophen 325 Mg Tablet) 650 mg PO Q6H PRN PRN Reason: Pain, Mild (Pain Scale 1-3), fever or headache Last Admin: 09/12/23 03:37 Dose: 650 mg Documented By: DELON Comments: Patient willing to try tylenol at this time for level 4-5 pain. Amlodipine Besylate (Amlodipine Besylate 2.5 Mg Tablet) 7.5 mg PO BEDTIME JAQUELINE; Protocol Last Admin: 09/11/23 20:56 Dose: 7.5 mg Documented By: DELON Enoxaparin Sodium (Enoxaparin Sodium 40 Mg/0.4 Ml Syringe) 40 mg SUBCUT Q24H JAQUELINE Last Admin: 09/12/23 08:38 Dose: 40 mg Documented By: DAHIANA Folic Acid (Folic Acid 1 Mg Tablet) 1 mg PO DAILY [facility] Last Admin: 09/12/23 08:38 Dose: 1 mg Documented By: DAHIANA Hydromorphone HCl (Hydromorphone Hcl 1 Mg/Ml Syringe) 0.5 mg IVPUSH Q4H PRN; Protocol PRN Reason: Pain, Severe (Pain Scale 7-10) Magnesium Sulfate (Magnesium Sulfate/H2o) 2 gm in 50 mls @ 25 mls/hr IV ONCE ONE Stop: 09/12/23 13:42 Magnesium Oxide (Magnesium Oxide 400 Mg Tablet) [facility] Last Admin: 09/12/23 08:38 Dose: 400 mg Documented By: DAHIANA Melatonin (Melatonin 3 Mg Tablet) 6 mg PO BEDTIME PRN PRN Reason: Insomnia Last Admin: 09/11/23 21:52 Dose: 6 mg Documented By: DELON Ondansetron HCl (Ondansetron Hcl 4 Mg/2 Ml Vial) 4 mg IVPUSH Q6H PRN PRN Reason: Nausea and Vomiting Last Admin: 09/11/23 21:04 Dose: 4 mg Documented By: DELON Oxycodone HCl (Oxycodone Hcl Immed Release 5 Mg Tablet) 5 mg PO Q4H PRN PRN Reason: Pain, Moderate(Pain Scale 4-6) Last Admin: 09/12/23 05:47 Dose: 5 mg Documented By: DELON Pantoprazole Sodium (Pantoprazole Sodium 40 Mg/10 Ml Vial) 40 mg IVPUSH DAILY@0630 [facility] Last Admin: 09/12/23 05:47 Dose: 40 mg Documented By: DELON Pharmacy Consult (Consult Rx Etoh Phenob Im/Po) 1 each MISCELLANE ONCE PRN; Protocol PRN Reason: Consult order Phenobarbital (Phenobarbital 15 Mg Tablet) 45 mg PO BID [facility]; Protocol Stop: 09/12/23 21:01 Last Admin: 09/12/23 08:38 Dose: 45 mg Documented By: DAHIANA Phenobarbital (Phenobarbital 30 Mg Tablet) 30 mg PO BID [facility]; Protocol Stop: 09/14/23 21:01 Phenobarbital (Phenobarbital 30 Mg Tablet) 30 mg PO DAILY [facility]; Protocol Stop: 09/16/23 09:01 Potassium Chloride (Potassium Chloride Er 20 Meq Tab.Er.Prt) 40 meq PO BID [facility] Stop: 09/12/23 21:01 Last Admin: 09/12/23 11:06 Dose: 40 meq Documented By: DAHIANA Simethicone (Simethicone 80 Mg Tab.Chew) 80 mg PO Q6H PRN PRN Reason: flatulence Last Admin: 09/12/23 05:52 Dose: 80 mg Documented By: DELON Sodium Chloride (0.9 % Sodium Chloride Flush 3 Ml Syringe) 3 ml IVFLUSH QSHIFT [facility] Last Admin: 09/12/23 08:40 Dose: 3 ml Documented By: DAHIANA Thiamine HCl (Thiamine Hcl 100 Mg Tablet) 100 mg PO DAILY [facility] Last Admin: 09/12/23 08:38 Dose: 100 mg Documented By: DAHIANA Labs 09/12/23 06:13 09/12/23 10:03 Labs: Laboratory Results - last 24 hr 09/12/23 09/12/23 06:13 10:03 MCV 95.9 MCH 33.5 H MCHC 34.9 RDW 11.5 Plt Count 151 L MPV 11.5 Absolute Nucleated RBC 0.000 Nucleated RBC % (auto) 0.0 Hold Purple Top SEE NOTE Anion Gap 12 Estim Creat Clear Calc 134.8 Estimated GFR > 60 Random Glucose 103 Calcium 9.8 D Total Bilirubin 2.0 H Direct Bilirubin 0.9 H AST 205 H ALT 226 H Alkaline Phosphatase 120 H Total Protein 6.8 Albumin 3.8 Microbiology Microbiology Results: Microbiology 09/09/23 16:32 Blood Culture - Preliminary Blood - Venous No growth after 48 hours. 09/09/23 16:32 Blood Culture - Preliminary Blood - Venous No growth after 48 hours. Assessment and Plan (1) Hypokalemia: Status: Acute (2) Supraventricular tachycardia: Status: Acute (3) Acute pancreatitis: Status: Acute Plan J Luis Mcguire is a 43 years old man admitted with: Acute alcoholic pancreatitis without evidence of necrosis CT showing surrounding fluid collection, likely pseudocyst US with no evidence of gallstones, triglycerides 116 lipase trending down Tolerating clear liquid diet, advanced to bland diet Symptomatic therapy as needed with Dilaudid and Zofran IV GI following - recommend outpatient follow-up CT scan in 3-4 weeks to assess fluid collection LFTs trending up, discussed with GI, likely due to edema of the pancreatic head causing biliary obstruction which improves as pancreatitis resolves repeat LFTs in am SIRS criteria, but no sepsis, very low suspicion for acute infection. Lactic acidosis, tachycardia and tachypnea likely secondary to above, alcohol intoxication and dehydration. No antibiotics needed. Elevated transaminases, secondary to alcohol. patient was advised to active to alcohol consumption LFTs trending up, see above follow LFTs Hypomagnesemia/hypokalemia secondary to alcohol abuse. improving with replacement sinus tachycardia pt reports chronic tachycardia since childhood although denies ever seeing a machinist automotive and does not follow regularly with PCP Pain under adequate control, no significant anemia, afebrile, TSH within normal limits ECHO wnl SVT had one episode of SVT with associated palpitations patient reports history of this at baseline echo normal as above will start lopressor tele monitoring Alcohol use disorder with alcohol withdrawal continue phenobarbital protocol continue thiamine, Folic acid Addiction medicine consult - resources provided HTN continue norvasc DVT prophylaxis: lovenox Code status: Full Patient needs ongoing stay for alcoholic pancreatitis treatment IV pain meds, close monitoring of vital signs, tele monitoring and replacement of electrolytes Quality Stroke Does the patient have a stroke diagnosis?: No VTE Prior VTE?: No VTE Risk Level:: Medical - moderate - high VTE Device Contraindication: Treatment Not Indicated VTE Drug Contraindication: N/A - Med Ordered
[2023-09-12] MEDS: Magnesium Sulfate/H2O 2 GM/50 ML PIGGYBACK IV (11:55)
[2023-09-12] MEDS: Metoprolol Tartrate 25 MG TABLET PO (12:27)
--- NOTE | 2023-09-12 13:03 | P.CONCA_ITS ---
History of Present Illness History of Present Illness Date of Service: 09/12/23 Chief complaint: Acute alcoholic pancreatitis Narrative: This is a cardiology consultation regarding tachycardia on telemetry. Patient states that he has had high heart rates for decades. He believes even at the age of 12 or so he has had a fast heart rate. There is no documentation for any of this. He states he did not see anybody to get evaluated. There is a history of alcohol excess and he states he drinks several shots of vodka daily. Current admission is for diagnosed with pancreatitis. In this context, there was a run of tachycardia for about 3 minutes or so and hence we are asked to evaluate him. Patient otherwise denies any complaints like angina or shortness of breath or palpitations or in fact anything of that nature. He is active at baseline with no limitations. 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 Even now, he goes up and down 2 flights of stairs for his home and there is no problem with that. He does feel occasional palpitations for a few seconds somewhat randomly. Hence could have a supraventricular arrhythmia at baseline. Review of Systems 2 Review of Systems: Yes all other systems are reviewed and are negative Constitutional: Constitutional: Reports as per HPI and Reports no additional constitutional complaints Eyes: Eyes: Reports as per HPI and Denies no additional eye complaints ENT: Denies system reviewed and no additional complaints, except as documented and Reports as per HPI Cardiovascular: Cardiovascular: Reports as per HPI, Reports no additional cardiovascular complaints, Denies acrocyanosis, Denies cool extremities, Denies chest pain, Denies leg edema, Denies lightheadedness, Denies palpitations and Denies dyspnea Respiratory: Respiratory: Reports as per HPI, Denies no additional respiratory complaints and Denies dyspnea Gastrointestinal: Gastrointestinal: Reports as per HPI and Denies no additional gastrointestinal complaints Genitourinary: Genitourinary: Reports no additional male genitourinary complaints and Reports as per HPI Musculoskeletal: Musculoskeletal: Reports no additional musculoskeletal complaints and Reports as per HPI Integumentary/Breasts: Skin/Breast: Reports system reviewed and no additional complaints, except as docu Neurologic: Reports system reviewed and no additional complaints, except as documented and Reports as per HPI Psychiatric: Psychiatric: Reports no additional psychiatric complaints and Reports as per HPI Endocrine: Endocrine: Reports no additional endocrine complaints, Reports as per HPI and Denies palpitations Hematologic/Lymphatic: Hematologic/Lymphatic: Reports no additional hematologic/lymphatic complaints and Reports as per HPI Allergic/Immunologic: Allergic/Immunologic: Reports no additional allergic/immunologic complaints and Reports as per HPI [facility] Past Medical History Medical History Acute pancreatitis Alcohol abuse Family History Family History Father No problems noted. Mother No problems noted. Surgical History Surgical History History of appendectomy Social History Social History Household Members: Family Housing: House Do you presently have visiting nurse or other home services: No Alcohol intake: current Alcohol intake frequency: 3 or more drinks per day Alcohol type: hard liquor Patient Tobacco Use Status: Tobacco use Unknown Substance Use Type: Marijuana service: No Meds Allergies Allergy/AdvReac Type Severity Reaction Status Date / Time cefaclor [From Ceclor] AdvReac Unknown Verified 09/09/23 16:11 Active Medications: Current Medications Acetaminophen (Acetaminophen 325 Mg Tablet) 650 mg PO Q6H PRN PRN Reason: Pain, Mild (Pain Scale 1-3), fever or headache Last Admin: 09/12/23 03:37 Dose: 650 mg Enoxaparin Sodium (Enoxaparin Sodium 40 Mg/0.4 Ml Syringe) 40 mg SUBCUT Q24H [facility] Last Admin: 09/12/23 08:38 Dose: 40 mg Folic Acid (Folic Acid 1 Mg Tablet) 1 mg PO DAILY [facility] Last Admin: 09/12/23 08:38 Dose: 1 mg Hydromorphone HCl (Hydromorphone Hcl 1 Mg/Ml Syringe) 0.5 mg IVPUSH Q4H PRN; Protocol PRN Reason: Pain, Severe (Pain Scale 7-10) Magnesium Sulfate (Magnesium Sulfate/H2o) 2 gm in 50 mls @ 25 mls/hr IV ONCE ONE Stop: 09/12/23 13:42 Last Admin: 09/12/23 11:55 Dose: 25 mls/hr Magnesium Oxide (Magnesium Oxide 400 Mg Tablet) 400 mg PO BIDPC JAQUELINE Last Admin: 09/12/23 08:38 Dose: 400 mg Melatonin (Melatonin 3 Mg Tablet) 6 mg PO BEDTIME PRN PRN Reason: Insomnia Last Admin: 09/11/23 21:52 Dose: 6 mg Metoprolol Tartrate (Metoprolol Tartrate 25 Mg Tablet) 25 mg PO BID [facility]; Protocol Last Admin: 09/12/23 12:27 Dose: 25 mg Ondansetron HCl (Ondansetron Hcl 4 Mg/2 Ml Vial) 4 mg IVPUSH Q6H PRN PRN Reason: Nausea and Vomiting Last Admin: 09/11/23 21:04 Dose: 4 mg Oxycodone HCl (Oxycodone Hcl Immed Release 5 Mg Tablet) 5 mg PO Q4H PRN PRN Reason: Pain, Moderate(Pain Scale 4-6) Last Admin: 09/12/23 05:47 Dose: 5 mg Pantoprazole Sodium (Pantoprazole Sodium 40 Mg/10 Ml Vial) 40 mg IVPUSH DAILY@0630 [facility] Last Admin: 09/12/23 05:47 Dose: 40 mg Pharmacy Consult (Consult Rx Etoh Phenob Im/Po) 1 each MISCELLANE ONCE PRN; Protocol PRN Reason: Consult order Phenobarbital (Phenobarbital 15 Mg Tablet) 45 mg PO BID [facility]; Protocol Stop: 09/12/23 21:01 Last Admin: 09/12/23 08:38 Dose: 45 mg Phenobarbital (Phenobarbital 30 Mg Tablet) 30 mg PO BID [facility]; Protocol Stop: 09/14/23 21:01 Phenobarbital (Phenobarbital 30 Mg Tablet) 30 mg PO DAILY [facility]; Protocol Stop: 09/16/23 09:01 Potassium Chloride (Potassium Chloride Er 20 Meq Tab.Er.Prt) 40 meq PO BID [facility] Stop: 09/12/23 21:01 Last Admin: 09/12/23 11:06 Dose: 40 meq Simethicone (Simethicone 80 Mg Tab.Chew) 80 mg PO Q6H PRN PRN Reason: flatulence Last Admin: 09/12/23 05:52 Dose: 80 mg Sodium Chloride (0.9 % Sodium Chloride Flush 3 Ml Syringe) 3 ml IVFLUSH QSHIFT [facility] Last Admin: 09/12/23 08:40 Dose: 3 ml Thiamine HCl (Thiamine Hcl 100 Mg Tablet) 100 mg PO DAILY [facility] Last Admin: 09/12/23 08:38 Dose: 100 mg Home Medications ?Medication ?Instructions ?Recorded ?Confirmed ?Last Taken ?Type omeprazole 20 mg tablet,delayed 20 mg PO DAILY 09/09/23 09/09/23 Unknown History release Physical Exam 2 Vital Signs: Vital Signs: Last Vital Signs Temp 96.9 F 09/12/23 11:03 Pulse 120 H 09/12/23 12:27 Resp 20 09/12/23 11:03 BP 138/80 09/12/23 12:27 Pulse Ox 96 09/12/23 11:03 O2 Del Method Room Air 09/12/23 11:03 O2 Flow Rate 99 09/10/23 03:45 BMI result Body Mass Index 22.3 Const: General: comfortable and no acute distress O rientation/consciousness: patient oriented x3 HEENT: Other: Unremarkable Head: Yes normal to inspection Neck: Neck: Yes normal visual inspection Chest: Chest palpation & inspection: normal inspection of the chest Resp: Auscultation: clear to auscultation bilaterally Cardio: Palpation: normal PMI Heart sounds: S1 normal heart sound present, S2 normal heart sound present, no gallops, no murmurs and no rubs GI: Palpation (GI): Soft to palpation Back/Spine/Pelvis: Other: unremarkable Skin: General skin exam: no rashes or lesions noted Neuro: General: patient oriented x3 Extrem: General: Yes normal to inspection Psych: Mental Status: mental status grossly normal Objective Labs and Meds 09/12/23 06:13 09/12/23 10:03 Lab results: Laboratory Results - last 24 hr 09/12/23 09/12/23 06:13 10:03 WBC 12.7 H RBC 4.15 L Hgb 13.9 L Hct 39.8 L MCV 95.9 MCH 33.5 H MCHC 34.9 RDW 11.5 Plt Count 151 L MPV 11.5 Absolute Nucleated RBC 0.000 Nucleated RBC % (auto) 0.0 Hold Purple Top SEE NOTE Sodium 134 L Potassium 3.1 L D Chloride 99 Carbon Dioxide 26 Anion Gap 12 BUN 4 L Creatinine 0.74 Estim Creat Clear Calc 134.8 Estimated GFR > 60 Random Glucose 103 Calcium 9.8 D Total Bilirubin 2.0 H Direct Bilirubin 0.9 H AST 205 H ALT 226 H Alkaline Phosphatase 120 H Total Protein 6.8 Albumin 3.8 ECG Interpretation: EKG with sinus rhythm at 91/Min; no significant ST-T changes and otherwise unremarkable. Normal MO. Corrected QT is 479 milliseconds. In the EKG prior to that, corrected QT was 455 milliseconds. Assessment and Plan (1) Supraventricular tachycardia: Status: Acute (2) Alcohol abuse: Status: Acute (3) Acute pancreatitis: Status: Acute (4) Hypokalemia: Status: Acute Plan Telemetry reviewed. In the concerning strip, there is initially brought complex rhythm for about 20 beats or so. That is suspected to be supraventricular rhythm with aberrancy. Following that, there is narrow complex tachycardia for about 3 minutes or so. That is clearly supraventricular in nature. Not clear if it is atrial tachycardia versus AVNRT. Then goes into sinus tachycardia. Overall, it is possible that he does have SVT at baseline that is manifesting because of alcohol withdrawal. Sinus tachycardia will also be related to alcohol but I am not clear if it is truly chronic and goes back decades as the patient describes. Corrected relates. With regard to medications, increase beta-blockers and hold off on amlodipine. Echocardiogram with preserved LVEF and does not show anything obvious otherwise. Stop drinking alcohol. Discussed with patient. Procedures Date of Service Date of Service: 09/12/23
[2023-09-12 17:47] LABS: Vitamin B12 770 pg/mL (200-900)
[2023-09-12] MEDS: ondansetron HCL 4 MG/2 ML VIAL IVPUSH (18:17)
[2023-09-12] MEDS: Metoprolol Tartrate 50 MG TABLET PO (21:21)
[2023-09-12] MEDS: Melatonin 3 MG TABLET 6 MG PO (21:41)
[2023-09-13] VITALS (7 sets, daily range): BP systolic 122–149; BP diastolic 80–96; PULSE 76–92; RESP 16–20; TEMP 36.3–37.1; O2SAT 95–99
[2023-09-13] MEDS: HYDROmorphone HCl 1 MG/ML SYRINGE 0.5 MG IVPUSH ×3 (00:05→10:20)
[2023-09-13] MEDS: Loperamide HCl 2 MG CAPSULE 4 MG PO ×3 (00:20→10:21)
[2023-09-13] MEDS: 0.9 % Sodium Chloride Flush 3 ML SYRINGE IVFLUSH ×4 (05:00→19:56)
[2023-09-13] MEDS: Pantoprazole Sodium 40 MG/10 ML VIAL IVPUSH (06:43)
[2023-09-13 07:58] LABS: Alanine Aminotransferase 282 U/L (0-40); Albumin Level 4.1 g/dL (3.5-5.0); Alkaline Phosphatase 151 U/L (39-117); Anion Gap 15 (12-20); Aspartate Amino Transferase 193 U/L (5-37); Bilirubin Direct 0.7 mg/dL (0.0-0.5); Bilirubin Total 1.2 mg/dL (0.0-1.0); Blood Urea Nitrogen 6 mg/dL (9-16); Calcium 9.8 mg/dL (8.4-10.2); Carbon Dioxide 27 mmol/L (22-29); Chloride 99 mmol/L (96-108); Creatinine Clr Calc Pharmacy 123.1; Estimated Glomerular Filt Rate > 60; Glucose Random 86 mg/dL (60-115); Potassium 4.2 mmol/L (3.3-5.1); Sodium 137 mmol/L (135-145); Total Protein 7.2 g/dL (6.5-8.0)
[2023-09-13] MEDS: Enoxaparin Sodium 40 MG/0.4 ML SYRINGE SUBCUT (08:34)
[2023-09-13] MEDS: PHENobarbitaL 30 MG TABLET PO ×2 (08:35→19:56)
[2023-09-13] MEDS: Folic Acid 1 MG TABLET PO (08:35)
[2023-09-13] MEDS: Thiamine HCL 100 MG TABLET PO (08:35)
[2023-09-13] MEDS: Metoprolol Tartrate 50 MG TABLET PO ×2 (08:35→19:56)
[2023-09-13 09:03] LABS: Lipase 137 U/L (8-78)
--- NOTE | 2023-09-13 09:50 | PM.PNCARD ---
Subjective Subjective Date of Service: 09/13/23 Interval history: From cardiac, no specific complaints. Still dealing with the GI issues. Review of Systems Review of Systems Yes all other systems are reviewed and are negative Constitutional: Reports as per HPI and Reports no additional constitutional complaints Eyes: Reports as per HPI and Denies no additional eye complaints Denies system reviewed and no additional complaints, except as documented and Reports as per HPI Cardiovascular: Reports as per HPI, Reports no additional cardiovascular complaints, Denies acrocyanosis, Denies cool extremities, Denies chest pain, Denies leg edema, Denies lightheadedness, Denies palpitations and Denies dyspnea Respiratory: Reports as per HPI, Denies no additional respiratory complaints and Denies dyspnea Gastrointestinal: Reports as per HPI and Denies no additional gastrointestinal complaints Genitourinary: Reports no additional male genitourinary complaints and Reports as per HPI Musculoskeletal: Reports no additional musculoskeletal complaints and Reports as per HPI Skin/Breast: Reports system reviewed and no additional complaints, except as docu Reports system reviewed and no additional complaints, except as documented and Reports as per HPI Psychiatric: Reports no additional psychiatric complaints and Reports as per HPI Endocrine: Reports no additional endocrine complaints, Reports as per HPI and Denies palpitations Hematologic/Lymphatic: Reports no additional hematologic/lymphatic complaints and Reports as per HPI Allergic/Immunologic: Reports no additional allergic/immunologic complaints and Reports as per HPI Physical Exam Vital Signs: Last Vital Signs Temp 97.7 F 09/13/23 07:32 Pulse 91 09/13/23 07:32 Resp 18 09/13/23 07:32 BP 134/91 H 09/13/23 07:32 Pulse Ox 98 09/13/23 07:32 O2 Del Method Room Air 09/13/23 07:32 O2 Flow Rate 99 09/10/23 03:45 BMI result Body Mass Index 22.3 Const General: comfortable and no acute distress Orientation/consciousness: patient oriented x3 HEENT Other: Unremarkable Head: Yes normal to inspection Neck Neck: Yes normal visual inspection Chest Chest palpation & inspection: normal inspection of the chest Resp Auscultation: clear to auscultation bilaterally Cardio Palpation: normal PMI Heart sounds: S1 normal heart sound present, S2 normal heart sound present, no gallops, no murmurs and no rubs GI Palpation (GI): Soft to palpation Back/Spine/Pelvis Other: unremarkable Skin General skin exam: no rashes or lesions noted Neuro General: patient oriented x3 Extrem General: Yes normal to inspection Psych Mental Status: mental status grossly normal Objective Labs and Meds 09/12/23 06:13 09/13/23 06:28 Lab results: Laboratory Results - last 24 hr 09/12/23 09/12/23 09/13/23 10:03 16:54 06:28 Hold Purple Top SEE NOTE SEE NOTE Sodium 134 L 137 Potassium 3.1 L D 4.2 D Chloride 99 99 Carbon Dioxide 26 27 Anion Gap 12 15 BUN 4 L 6 L Creatinine 0.74 0.81 Estim Creat Clear Calc 134.8 123.1 Estimated GFR > 60 > 60 Random Glucose 103 86 Calcium 9.8 D 9.8 Total Bilirubin 1.2 H Direct Bilirubin 0.7 H AST 193 H ALT 282 H Alkaline Phosphatase 151 H Total Protein 7.2 Albumin 4.1 Lipase 137 H Vitamin B12 770 Progress Note: A&P Assessment and plan (1) Supraventricular tachycardia: Status: Acute (2) Alcohol abuse: Status: Acute (3) Acute pancreatitis: Status: Acute (4) Hypokalemia: Status: Acute Plan In the review of telemetry, no further evidence of NSVT or any other significant arrhythmias. Currently on beta-blockers and that may be continued. Otherwise, addressed see acute GI issues/alcohol. Keep electrolytes appropriately corrected. In the future, abstain from alcohol. Echocardiogram with LVEF of 55%. No significant wall motion findings and otherwise unremarkable. Discussed with patient as well as Charlotte Garces, hospitalist. Time Spent With Patient Time: Total time managing care of this patient today ____ minutes. Progress Note: Quality Stroke Does the patient have a stroke diagnosis?: No Procedures Date of Service Date of Service: 09/13/23
[2023-09-13] MEDS: ondansetron HCL 4 MG/2 ML VIAL IVPUSH (10:20)
[2023-09-13] MEDS: iohexoL 350 MG/ML 100 ML INFUS..BTL IV (11:56)
--- NOTE | 2023-09-13 12:32 | P.PNIM_ITS ---
Subjective Subjective Date of Service: 09/13/23 Interval History: Seen and examined this morning Follow-up for alcoholic pancreatitis Abdominal pain had improved yesterday and diet was advanced, however overnight patient began having recurrent abdominal pain, diarrhea, nausea and vomiting Patient with persistent symptoms this morning. No fever, no chills Review of Systems Review of Systems: Yes all other systems are reviewed and are negative Constitutional Constitutional: Denies chills and Denies fever(s) Physical Exam 2 Vital Signs: Vital Signs: Last Vital Signs Temp 97.4 F 09/13/23 11:35 Pulse 82 09/13/23 11:35 Resp 18 09/13/23 11:35 BP 133/95 H 09/13/23 11:35 Pulse Ox 95 09/13/23 11:35 O2 Del Method Room Air 09/13/23 11:35 O2 Flow Rate 99 09/10/23 03:45 BMI result Body Mass Index 22.3 Const: General: cooperative, comfortable, no acute distress, alert and awake Nutritional Appearance: average body habitus Orientation/consciousness: p atient oriented x3 Resp: Effort & Inspection: normal respiratory effort, able to speak in complete sentences, no respiratory distress and no use of accessory muscles Cardio: Rate: tachycardic GI: Other: soft, mid abdominal pain and tenderness, nondistended, positive bowel sounds, no rebound Neuro: General: patient oriented x3, moves all extremities and CN's II-XI intact bilaterally Extrem: General: Yes no pedal edema Objective Data Active Medications Acetaminophen (Acetaminophen 325 Mg Tablet) 650 mg PO Q6H PRN PRN Reason: Pain, Mild (Pain Scale 1-3), fever or headache Last Admin: 09/12/23 18:17 Dose: 650 mg Documented By: SHANNON Enoxaparin Sodium (Enoxaparin Sodium 40 Mg/0.4 Ml Syringe) 40 mg SUBCUT Q24H [facility] Last Admin: 09/13/23 08:34 Dose: 40 mg Documented By: DAHIANA Folic Acid (Folic Acid 1 Mg Tablet) 1 mg PO DAILY [facility] Last Admin: 09/13/23 08:35 Dose: 1 mg Documented By: DAHIANA Hydromorphone HCl (Hydromorphone Hcl 1 Mg/Ml Syringe) 0.5 mg IVPUSH Q4H PRN; Protocol PRN Reason: Pain, Severe (Pain Scale 7-10) Last Admin: 09/13/23 10:20 Dose: 0.5 mg Documented By: DAHIANA Loperamide HCl (Loperamide Hcl 2 Mg Capsule) 4 mg PO Q6H PRN PRN Reason: Diarrhea Last Admin: 09/13/23 10:21 Dose: 4 mg Documented By: DAHIANA Magnesium Oxide ([facility]ide 400 Mg Tablet) [facility] Last Admin: 09/12/23 16:34 Dose: 400 mg Documented By: DAHIANA Melatonin (Melatonin 3 Mg Tablet) 6 mg PO BEDTIME PRN PRN Reason: Insomnia Last Admin: 09/12/23 21:41 Dose: 6 mg Documented By: DANTE Metoprolol Tartrate (Metoprolol Tartrate 50 Mg Tablet) 50 mg PO BID [facility]; Protocol Last Admin: 09/13/23 08:35 Dose: 50 mg Documented By: DAHIANA Ondansetron HCl (Ondansetron Hcl 4 Mg/2 Ml Vial) 4 mg IVPUSH Q6H PRN PRN Reason: Nausea and Vomiting Last Admin: 09/13/23 10:20 Dose: 4 mg Documented By: DAHIANA Oxycodone HCl (Oxycodone Hcl Immed Release 5 Mg Tablet) 5 mg PO Q4H PRN PRN Reason: Pain, Moderate(Pain Scale 4-6) Last Admin: 09/12/23 05:47 Dose: 5 mg Documented By: DELON Pantoprazole Sodium (Pantoprazole Sodium 40 Mg/10 Ml Vial) 40 mg IVPUSH DAILY@0630 [facility] Last Admin: 09/13/23 06:43 Dose: 40 mg Documented By: MARSHALL Pharmacy Consult (Consult Rx Etoh Phenob Im/Po) 1 each MISCELLANE ONCE PRN; Protocol PRN Reason: Consult order Phenobarbital (Phenobarbital 30 Mg Tablet) 30 mg PO BID [facility]; Protocol Stop: 09/14/23 21:01 Last Admin: 09/13/23 08:35 Dose: 30 mg Documented By: DAHIANA Phenobarbital (Phenobarbital 30 Mg Tablet) 30 mg PO DAILY [facility]; Protocol Stop: 09/16/23 09:01 Simethicone (Simethicone 80 Mg Tab.Chew) 80 mg PO Q6H PRN PRN Reason: flatulence Last Admin: 09/12/23 16:38 Dose: 80 mg Documented By: DAHIANA Sodium Chloride (0.9 % Sodium Chloride Flush 3 Ml Syringe) 3 ml IVFLUSH QSHIFT [facility] Last Admin: 09/13/23 08:34 Dose: 3 ml Documented By: DAHIANA Thiamine HCl (Thiamine Hcl 100 Mg Tablet) 100 mg PO DAILY [facility] Last Admin: 09/13/23 08:35 Dose: 100 mg Documented By: DAHIANA Labs 09/12/23 06:13 09/13/23 06:28 Labs: Laboratory Results - last 24 hr 09/12/23 09/13/23 16:54 06:28 Hold Purple Top SEE NOTE Anion Gap 15 Estim Creat Clear Calc 123.1 Estimated GFR > 60 Random Glucose 86 Calcium 9.8 Total Bilirubin 1.2 H Direct Bilirubin 0.7 H AST 193 H ALT 282 H Alkaline Phosphatase 151 H Total Protein 7.2 Albumin 4.1 Lipase 137 H Vitamin B12 770 Assessment and Plan (1) Supraventricular tachycardia: Status: Acute (2) Acute pancreatitis: Status: Acute Plan J Luis Mcguire is a 43 years old man admitted with acute pancreatitis due to alcohol initially improving and now with recurrence of abdominal pain as well as nausea, vomiting, diarrhea Acute alcoholic pancreatitis without evidence of necrosis CT showing surrounding fluid collection, likely pseudocyst US with no evidence of gallstones, triglycerides 116 lipase trending down was tolerating diet but overnight had recurrence of pain with N/V/D Symptomatic treatment GI following - will repeat CT given recurrence of pain and persistently elevated LFTs will need outpatient follow-up CT scan in 3-4 weeks to assess fluid collection Elevated LFTs LFTs trending up, discussed with GI, possibly due to edema of the pancreatic head causing biliary obstruction which improves as pancreatitis resolves hepatitis serology pending repeat LFTs in am diarrhea check GI panel SIRS criteria, but no sepsis, very low suspicion for acute infection. Lactic acidosis, tachycardia and tachypnea likely secondary to above, alcohol intoxication and dehydration. No antibiotics needed. Elevated transaminases, secondary to alcohol. patient was advised to active to alcohol consumption LFTs trending up, see above follow LFTs Hypomagnesemia/hypokalemia secondary to alcohol abuse. improving with replacement sinus tachycardia pt reports chronic tachycardia since childhood although denies ever seeing a hot stone setter and does not follow regularly with PCP Pain under adequate control, no significant anemia, afebrile, TSH within normal limits ECHO wnl improved on BB SVT had one episode of SVT with associated palpitations patient reports history of intermittent palpitations and tachycardia at baseline echo normal as above started on lopressor No further episodes of SVT Alcohol use disorder with alcohol withdrawal continue phenobarbital protocol continue thiamine, Folic acid Addiction medicine consult - resources provided HTN continue metoprolol DVT prophylaxis: lovenox Code status: Full Patient needs ongoing stay for alcoholic pancreatitis treatment IV pain meds, close monitoring of vital signs, tele monitoring and replacement of electrolytes Quality Stroke Does the patient have a stroke diagnosis?: No VTE Prior VTE?: No VTE Risk Level:: Medical - moderate - high VTE Device Contraindication: Treatment Not Indicated VTE Drug Contraindication: N/A - Med Ordered
[2023-09-13 13:07] LABS: Hematocrit 44.9 % (42.0-52.0); Hemoglobin 15.1 g/dl (14.0-18.0); Mean Corpuscular HGB Conc 33.6 g/dl (31.0-36.0); Mean Corpuscular Hemoglobin 33.6 pg (27.0-33.0); Mean Corpuscular Volume 99.8 fL (80.0-98.0); Mean Platelet Volume 11.6 fL (9.4-12.4); Platelet Count 193 X10*3/uL (160-400); Red Cell Distribution Width 11.9 % (11.0-16.0); White Blood Count 9.9 X10*3/uL (4.8-10.8)
[2023-09-13] MEDS: Acetaminophen 325 MG TABLET 650 MG PO (21:39)
[2023-09-13] MEDS: Melatonin 3 MG TABLET 6 MG PO (22:45)
[2023-09-13] MEDS: Simethicone 80 MG TAB.CHEW PO (22:45)
[2023-09-14 01:16] VITALS: PULSE 77; RESP 18
[2023-09-14 03:17] VITALS: BP 125/87; PULSE 71; RESP 20; TEMP 36.4; O2SAT 99
[2023-09-14 03:39] LABS: HBS Num1 111.33 mIU/mL (0-7.99); HBc Num1 0.08 S/CO (0.00-0.79); HBsAGNum1 0.24 S/CO (0.00-0.99); Hepatitis B Core Antibody Nonreactive (Nonreactive); Hepatitis B Surface Antigen Negative (Negative); ~HepC Num1 0.15 S/CO (0.00-0.79); ~Hepatitis B Surface Antibody REACTIVE (Nonreactive); ~Hepatitis C Antibody Nonreactive (Nonreactive)
[2023-09-14] MEDS: Pantoprazole Sodium 40 MG/10 ML VIAL IVPUSH (06:38)
[2023-09-14 07:27] VITALS: BP 134/97; PULSE 100; RESP 18; TEMP 36.9; O2SAT 99
[2023-09-14 07:35] LABS: Adenovirus F 40/41 Not Detected (Not Detect.); Campylobacter Not Detected (Not Detect.); Cryptosporidium Not Detected (Not Detect.); Cyclospora cayetanensis Not Detected (Not Detect.); E. coli EAEC Not Detected (Not Detect.); E. coli EPEC Not Detected (Not Detect.); E. coli ETEC Not Detected (Not Detect.); E. coli STEC Not Detected (Not Detect.); Entamoeba histolytica Not Detected (Not Detect.); Giardia lamblia Not Detected (Not Detect.); Plesiomonas shigelloides Not Detected (Not Detect.); Salmonella Not Detected (Not Detect.); Shigella sp./EIEC Not Detected (Not Detect.); Vibrio Not Detected (Not Detect.); Vibrio Cholerae Not Detected (Not Detect.); Yersinia enterocolitica Not Detected (Not Detect.)
[2023-09-14 07:36] LABS: Astrovirus Not Detected (Not Detect.); Norovirus GI/GII Not Detected (Not Detect.); Rotavirus A Not Detected (Not Detect.); Sapovirus Not Detected (Not Detect.)
[2023-09-14] MEDS: Folic Acid 1 MG TABLET PO (08:32)
[2023-09-14] MEDS: Metoprolol Tartrate 50 MG TABLET PO ×2 (08:32→20:49)
[2023-09-14] MEDS: Simethicone 80 MG TAB.CHEW PO (08:33)
[2023-09-14] MEDS: 0.9 % Sodium Chloride Flush 3 ML SYRINGE IVFLUSH ×3 (08:34→20:50)
[2023-09-14] MEDS: Enoxaparin Sodium 40 MG/0.4 ML SYRINGE SUBCUT (08:36)
[2023-09-14] MEDS: PHENobarbitaL 30 MG TABLET PO ×2 (08:37→20:50)
[2023-09-14] MEDS: Thiamine HCL 100 MG TABLET PO (08:38)
[2023-09-14] MEDS: Loperamide HCl 2 MG CAPSULE 4 MG PO (08:40)
--- NOTE | 2023-09-14 11:16 | MHC.CM.PN ---
Per ROUNDS discussion, Patient is not yet medically cleared for dc (IV Dilaudid & IV Protonix); home is the goal and CM will continue to follow.
[2023-09-14 11:36] VITALS: BP 134/98; PULSE 91; RESP 18; TEMP 36.8; O2SAT 98
[2023-09-14] MEDS: oxyCODONE HCl Immed Release 5 MG TABLET PO (12:52)
--- NOTE | 2023-09-14 13:03 | P.PNIM_ITS ---
Subjective Subjective Date of Service: 09/14/23 Interval History: abd pain/N/V improved and wishes to upgrade diet to full liquids diarrhea still present withdrawals well-controlled Review of Systems Review of Systems: Yes all other systems are reviewed and are negative Physical Exam 2 Vital Signs: Vital Signs: Last Vital Signs Temp 98.3 F 09/14/23 11:36 Pulse 91 09/14/23 11:36 Resp 18 09/14/23 11:36 BP 134/98 H 09/14/23 11:36 Pulse Ox 98 09/14/23 11:36 O2 Del Method Room Air 09/14/23 11:36 O2 Flow Rate 99 09/10/23 03:45 BMI result Body Mass Index 22.3 Gen: in no acute distress HEENT: sclera anicteric, moist mucus membranes Neck: supple Lungs: clear to auscultation bilaterally Heart: regular rate and rhythm, no murmurs Abd: soft, non-tender, non-distended Ext: no edema Skin: warm/well-perfused Neuro: alert and oriented x3, no focal findings Psych: appropriate affect Objective Data Active Medications Acetaminophen (Acetaminophen 325 Mg Tablet) 650 mg PO Q6H PRN PRN Reason: Pain, Mild (Pain Scale 1-3), fever or headache Last Admin: 09/13/23 21:39 Dose: 650 mg Documented By: GUTIERREZ Enoxaparin Sodium (Enoxaparin Sodium 40 Mg/0.4 Ml Syringe) 40 mg SUBCUT Q24H [facility] Last Admin: 09/14/23 08:36 Dose: 40 mg Documented By: JOHN Folic Acid (Folic Acid 1 Mg Tablet) 1 mg PO DAILY [facility] Last Admin: 09/14/23 08:32 Dose: 1 mg Documented By: JOHN Hydromorphone HCl (Hydromorphone Hcl 1 Mg/Ml Syringe) 0.5 mg IVPUSH Q4H PRN; Protocol PRN Reason: Pain, Severe (Pain Scale 7-10) Last Admin: 09/13/23 10:20 Dose: 0.5 mg Documented By: DAHIANA Magnesium Oxide (Magnesium Oxide 400 Mg Tablet) 400 mg PO BIDPC [facility] Last Admin: 09/12/23 16:34 Dose: 400 mg Documented By: DAHIANA Melatonin (Melatonin 3 Mg Tablet) 6 mg PO BEDTIME PRN PRN Reason: Insomnia Last Admin: 09/13/23 22:45 Dose: 6 mg Documented By: GUTIERREZ Metoprolol Tartrate (Metoprolol Tartrate 50 Mg Tablet) 50 mg PO BID [facility]; Protocol Last Admin: 09/14/23 08:32 Dose: 50 mg Documented By: JOHN Ondansetron HCl (Ondansetron Hcl 4 Mg/2 Ml Vial) 4 mg IVPUSH Q6H PRN PRN Reason: Nausea and Vomiting Last Admin: 09/13/23 10:20 Dose: 4 mg Documented By: DAHIANA Oxycodone HCl (Oxycodone Hcl Immed Release 5 Mg Tablet) 5 mg PO Q4H PRN PRN Reason: Pain, Moderate(Pain Scale 4-6) Last Admin: 09/14/23 12:52 Dose: 5 mg Documented By: CHARLOTTE Pantoprazole Sodium (Pantoprazole Sodium 40 Mg/10 Ml Vial) 40 mg IVPUSH DAILY@0630 [facility] Last Admin: 09/14/23 06:38 Dose: 40 mg Documented By: GUTIERREZ Pharmacy Consult (Consult Rx Etoh Phenob Im/Po) 1 each MISCELLANE ONCE PRN; Protocol PRN Reason: Consult order Phenobarbital (Phenobarbital 30 Mg Tablet) 30 mg PO BID [facility]; Protocol Stop: 09/14/23 21:01 Last Admin: 09/14/23 08:37 Dose: 30 mg Documented By: JOHN Phenobarbital (Phenobarbital 30 Mg Tablet) 30 mg PO DAILY [facility]; Protocol Stop: 09/16/23 09:01 Simethicone (Simethicone 80 Mg Tab.Chew) 80 mg PO Q6H PRN PRN Reason: flatulence Last Admin: 09/14/23 08:33 Dose: 80 mg Documented By: JOHN Sodium Chloride (0.9 % Sodium Chloride Flush 3 Ml Syringe) 3 ml IVFLUSH [facility] Last Admin: 09/14/23 08:34 Dose: 3 ml Documented By: JOHN Thiamine HCl (Thiamine Hcl 100 Mg Tablet) 100 mg PO DAILY [facility] Last Admin: 09/14/23 08:38 Dose: 100 mg Documented By: JOHN Labs 09/13/23 06:28 09/13/23 06:28 Labs: Laboratory Results - last 24 hr 09/12/23 09/13/23 09/13/23 16:54 06:28 14:02 MCV 99.8 H MCH 33.6 H MCHC 33.6 RDW 11.9 Plt Count 193 D MPV 11.6 Absolute Nucleated RBC 0.000 Nucleated RBC % (auto) 0.0 Stl C. cayetanensis PCR Not Detected Stool Rotavirus A PCR Not Detected Stl Adenov F 40/41 PCR Not Detected Stool Astrovirus (PCR) Not Detected Stool Campylobacter PCR Not Detected Stool Cryptosporidium PCR Not Detected Stl Sh Tox Pr E STEC PCR Not Detected Stool E coli O157 PCR Not applicable Stl Enterotoxigenic E PCR Not Detected Stool EPEC (PCR) Not Detected Stool EAEC (PCR) Not Detected Stl E. histolytica PCR Not Detected Stool Giardia Lamblia PCR Not Detected Stl P. shigelloides PCR Not Detected Stool Salmonella PCR Not Detected Stool Sapovirus (PCR) Not Detected Stl Shigella/EIEC PCR Not Detected St Y.enterocolitica PCR Not Detected Stool Vibrio (PCR) Not Detected Stl Vibrio cholerae PCR Not Detected Stl Norovirus GI/GII PCR Not Detected Hep Bs Antigen Negative Hep Bs Antibody REACTIVE Hep B Core Total Ab Nonreactive Hepatitis C Ab (EIA) Nonreactive Impressions Abdomen/Pelvis CT 09/13/23 12:09 IMPRESSION: Again seen are findings of acute interstitial pancreatitis with improvement in pancreatic parenchymal edema within the pancreatic head which is decreased in size with decreasing inflammatory change surrounding the pancreatic head and resolution of adjacent duodenal wall thickening. There is persistent peripancreatic fluid and stranding surrounding the pancreatic body and tail which is similar in volume to prior, with an acute peripancreatic collection inferior to the pancreas measuring approximately 7.6 cm. Pancreas is homogeneously enhancing. No pancreatic duct dilatation. Assessment and Plan (1) Supraventricular tachycardia: Status: Acute (2) Acute pancreatitis: Status: Acute Plan d6 43yo M with AUD admitted for acute EtOH pancreatitis acute EtOH pancreatitis with peripancreatic fluid collection possibly pseudocyst - advance diet to full liquids and if tolerated, solids - per GI, repeat CT in 3-4 wk to assess fluid collection transaminasemia - HBV-immune, HCV-negative; likely from EtOH + pancreatitis diarrhea - prn loperamide SIRS criteria - due to pancreatitis; not infection hypoK hypoMg - repleted SVT - had 1 episode; resolved; on metoprolol tartrate 50 mg bid AUD with withdrawal - phenobarbital taper, vitamins; Addiction Med consult done VTE ppx - LMWH dispo - anticipate home in next 1-2d In my clinical judgment, the patient requires continued inpatient hospitalization for the following reasons: IV fluids, pancreatitis Total time managing care of this patient today: 40 minutes. Quality Stroke Does the patient have a stroke diagnosis?: No VTE Prior VTE?: No VTE Risk Level:: Medical - moderate - high VTE Device Contraindication: Treatment Not Indicated VTE Drug Contraindication: N/A - Med Ordered
[2023-09-14 15:14] VITALS: BP 137/95; PULSE 99; RESP 18; TEMP 36.2; O2SAT 99
[2023-09-14 19:10] VITALS: BP 141/78; PULSE 107; RESP 20; TEMP 37.6; O2SAT 99
[2023-09-14] MEDS: Melatonin 3 MG TABLET 6 MG PO (23:14)
[2023-09-15 03:32] VITALS: BP 131/91; PULSE 82; RESP 20; TEMP 36.4; O2SAT 99
[2023-09-15] MEDS: Pantoprazole Sodium 40 MG/10 ML VIAL IVPUSH (06:04)
[2023-09-15 07:31] VITALS: BP 137/95; PULSE 75; RESP 18; TEMP 36.8; O2SAT 97
[2023-09-15] MEDS: Metoprolol Tartrate 50 MG TABLET PO (08:37)
[2023-09-15] MEDS: Enoxaparin Sodium 40 MG/0.4 ML SYRINGE SUBCUT (08:37)
[2023-09-15] MEDS: PHENobarbitaL 30 MG TABLET PO (08:37)
[2023-09-15] MEDS: Thiamine HCL 100 MG TABLET PO (08:37)
[2023-09-15] MEDS: Folic Acid 1 MG TABLET PO (08:37)
[2023-09-15] MEDS: 0.9 % Sodium Chloride Flush 3 ML SYRINGE IVFLUSH (08:41)
[2023-09-15 09:47] LABS: Alanine Aminotransferase 240 U/L (0-40); Albumin Level 4.4 g/dL (3.5-5.0); Alkaline Phosphatase 180 U/L (39-117); Anion Gap 16 (12-20); Aspartate Amino Transferase 123 U/L (5-37); Bilirubin Total 1.1 mg/dL (0.0-1.0); Blood Urea Nitrogen 8 mg/dL (9-16); Calcium 9.9 mg/dL (8.4-10.2); Carbon Dioxide 24 mmol/L (22-29); Chloride 100 mmol/L (96-108); Creatinine Clr Calc Pharmacy 121.6; Estimated Glomerular Filt Rate > 60; Glucose Random 108 mg/dL (60-115); Magnesium 2.1 mg/dL (1.6-2.6); Potassium 3.8 mmol/L (3.3-5.1); Sodium 136 mmol/L (135-145); Total Protein 7.7 g/dL (6.5-8.0)
--- NOTE | 2023-09-15 10:25 | MHC.CM.PN ---
Per ROUNDS discussion, Patient is medically cleared for dc to home today, self care.
--- NOTE | 2023-09-15 11:18 | PM.DS ---
DS: Providers Provider Date of Service: 09/15/23 Date of admission: 09/09/23 21:00 Date of discharge: 09/15/23 Primary care physician: Brennan Irby MD Consults: 09/09/23 21:04 Addiction Medicine Routine Consulting Provider: Addiction Covering Reason for consultation: Alcohol abuse Has provider been notified: No 09/10/23 07:51 Consult to Gastroenterology Routine Consulting Provider: Angi Srinivasan Reason for consultation: pancreatitis with fluid collections Has provider been notified: No 09/12/23 12:01 Consult to Cardiology Routine Consulting Provider: [facility] Reason for consultation: arrythmia Has provider been notified: No DS: Diagnosis Discharge Diagnosis (1) Supraventricular tachycardia: Status: Acute (2) Acute pancreatitis: Status: Acute (3) Alcohol withdrawal: Status: Acute (4) Alcohol use disorder: Status: Acute (5) Elevated levels of transaminase & lactic acid dehydrogenase: Status: Acute (6) Hypokalemia: Status: Acute (7) Hypomagnesemia: Status: Acute (8) Peripancreatic fluid collection: Status: Acute DS: Summary Hospital Course Hospital Course: From the history and physical by the admitting hospitalist, Pauly Birmingham MD, 09/09/23: J Luis Mcguire is a very pleasant 43 years old man with past medical history significant for alcohol abuse presents to the emergency department complaining of epigastric pain that has been on and off over the last 4 days. Today he experience burning chest pain with deep inspiration associated with multiple events of nonbloody/non coffee-ground vomiting. He reported suggestive fever. Denies diarrhea, headache, shortness of breath or cough. Last bowel movement was yesterday was normal. Abdominal past medical history significant for appendectomy. He drinks 4-5 shots of vodka. Last alcoholic drink was today around lunchtime. Denied illicit drug use. Smoke marijuana in occasions. In the ED, he was found to be hypertensive, tachypneic and tachycardic. There is no fever. There is hypomagnesemia, 1.5 and bicarb is 17. There are no other electrolyte imbalances. Renal function is normal. Transaminases are elevated. Bilirubin and alk phos are normal. Lipase is 142. Troponin is negative. Lactic acid was initially 4.3, rechecked 3.6. CXR is negative. Abdominal pelvis CT scan showed findings consistent with acute pancreatitis with peripancreatic fluid collections. ECG showed normal sinus rhythm without abuse ischemic changes. COVID-19 test is negative. Urine toxicology: Positive for fentanyl and marijuana. ETOH level is 126. UA showed increased specific gravity and 1+ protein. ED tx: NS 5 L bolus, Ativan 2 mg IV, Dilaudid 1 mg IV, Zosyn 3.375 g IV, fentanyl 50 mcg IV, Zofran 4 mg IV, morphine 4 mg IV, Protonix 80 mg IV 43yo M with AUD admitted for acute EtOH pancreatitis. Hospital course by problem: acute EtOH pancreatitis with peripancreatic fluid collection [possibly pseudocyst] - treated with bowel rest then advanced gradually to solids with good tolerance; pain, nausea, and vomiting resolved completely. - per GI consultation, repeat CT in 3-4 wk to assess fluid collection which may represent a pseudocyst transaminasemia - HBV-immune, HCV-negative; likely from EtOH + pancreatitis; repeat LFTs in 1 week SIRS criteria - due to pancreatitis; no evidence of infection hypoK hypoMg - repleted SVT - had 1 brief episode; started on metoprolol tartrate 50 mg bid and did not recur AUD with withdrawal - treated with phenobarbital taper and started on vitamin supplementation. Addiction Medicine consulted and should follow up with [facility] as outpatient. Time Attestation Discharge Coordination Time (in mins): 40 Quality: Safe Use of Opioids Does Pt have an Active Cancer Diagnosis on the Problem List?: No Quality: Stroke Does the patient have a stroke diagnosis?: No Physical Exam Vital Signs: Vital Signs: Last Vital Signs Temp 98.3 F 09/15/23 07:31 Pulse 75 09/15/23 07:31 Resp 18 09/15/23 07:31 BP 137/95 H 09/15/23 07:31 Pulse Ox 97 09/15/23 07:31 O2 Del Method Room Air 09/15/23 07:31 O2 Flow Rate 99 09/10/23 03:45 BMI result Body Mass Index 22.3 Gen: in no acute distress HEENT: sclera anicteric, moist mucus membranes Neck: supple Lungs: clear to auscultation bilaterally Heart: regular rate and rhythm, no murmurs Abd: soft, non-tender, non-distended Ext: no edema Skin: warm/well-perfused Neuro: alert and oriented x3, no focal findings Psych: appropriate affect DS: Data Data Completed and Pending Completed studies during hospitalization [Text1]: Laboratory Results WBC 9.9 X10*3/uL (4.8-10.8) 09/13/23 06:28 RBC 4.50 X10*6/uL (4.60-5.80) L 09/13/23 06:28 Hgb 15.1 g/dl (14.0-18.0) 09/13/23 06:28 Hct 44.9 % (42.0-52.0) 09/13/23 06:28 MCV 99.8 fL (80.0-98.0) H 09/13/23 06:28 MCH 33.6 pg (27.0-33.0) H 09/13/23 06:28 MCHC 33.6 g/dl (31.0-36.0) 09/13/23 06:28 RDW 11.9 % (11.0-16.0) 09/13/23 06:28 Plt Count 193 X10*3/uL (160-400) D 09/13/23 06:28 MPV 11.6 fL (9.4-12.4) 09/13/23 06:28 Immature Gran % (Auto) 0.5 % (0.0-0.4) H 09/10/23 06:16 Neut % (Auto) 84.2 % (45-73) H 09/10/23 06:16 Lymph % (Auto) 8.4 % (20-40) L 09/10/23 06:16 [place] % (Auto) 6.4 % (2-11) 09/10/23 06:16 Eos % (Auto) 0.2 % (0-4) 09/10/23 06:16 Baso % (Auto) 0.3 % (0-2) 09/10/23 06:16 Lymph # (Auto) 1.2 X10*3/uL (1.2-4.9) 09/10/23 06:16 [place] # (Auto) 0.9 X10*3/uL (0.1-1.2) 09/10/23 06:16 Eos # (Auto) 0.0 X10*3/uL (0.0-0.4) 09/10/23 06:16 Baso # (Auto) 0.0 X10*3/uL (0.0-0.2) 09/10/23 06:16 Abs Immat Gran (auto) 0.07 X10*3/uL (0.00-0.03) H 09/10/23 06:16 Absolute Neuts (auto) 11.7 x10*3/uL (2.0-8.3) H 09/10/23 06:16 Absolute Nucleated RBC 0.000 X10*3/uL (0.0-0.012) 09/13/23 06:28 Nucleated RBC % (auto) 0.0 /100WBC (0.0-0.2) 09/13/23 06:28 Hold Purple Top SEE NOTE 09/13/23 06:28 PT 10.9 SEC (11.1-13.3) L 09/09/23 16:55 INR 0.9 (0.9-1.1) 09/09/23 16:55 Sodium 136 mmol/L (135-145) 09/15/23 08:42 Potassium 3.8 mmol/L (3.3-5.1) 09/15/23 08:42 Chloride 100 mmol/L (96-108) 09/15/23 08:42 Carbon Dioxide 24 mmol/L (22-29) 09/15/23 08:42 Anion Gap 16 (12-20) 09/15/23 08:42 BUN 8 mg/dL (9-16) L 09/15/23 08:42 Creatinine 0.82 mg/dL (0.5-1.4) 09/15/23 08:42 Estim Creat Clear Calc 121.6 09/15/23 08:42 Estimated GFR > 60 09/15/23 08:42 Random Glucose 108 mg/dL (60-115) 09/15/23 08:42 Lactic Acid 0.9 mmol/L (0.5-2.0) 09/10/23 00:58 Lactic Acid F/U @ 2Hr 3.6 mmol/L (0.5-2.0) H* 09/09/23 19:20 Calcium 9.9 mg/dL (8.4-10.2) 09/15/23 08:42 Magnesium 2.1 mg/dL (1.6-2.6) 09/15/23 08:42 Total Bilirubin 1.1 mg/dL (0.0-1.0) H 09/15/23 08:42 Direct Bilirubin 0.7 mg/dL (0.0-0.5) H 09/13/23 06:28 AST 123 U/L (5-37) H 09/15/23 08:42 ALT 240 U/L (0-40) H 09/15/23 08:42 Alkaline Phosphatase 180 U/L (39-117) H 09/15/23 08:42 Troponin I High Sens < 2.7 ng/L (<3.5-35.0) 09/09/23 16:28 C-Reactive Protein 0.57 mg/dL (< or = 0.50) H 09/09/23 16:55 Total Protein 7.7 g/dL (6.5-8.0) 09/15/23 08:42 Albumin 4.4 g/dL (3.5-5.0) 09/15/23 08:42 Triglycerides 116 mg/dL (<150) 09/11/23 06:11 Cholesterol 163 mg/dL (<200) 09/11/23 06:11 LDL Cholesterol, Calc 97 mg/dL (<100) 09/11/23 06:11 HDL Cholesterol 43 mg/dL (>40) 09/11/23 06:11 Lipase 137 U/L (8-78) H 09/13/23 06:28 Vitamin B12 770 pg/mL (200-900) 09/12/23 16:54 TSH 1.69 uIU/mL (0.32-4.0) 09/11/23 06:11 Urine Color Yellow 09/09/23 17:07 Urine Appearance Clear 09/09/23 17:07 Urine pH 6.5 (5.0-9.0) 09/09/23 17:07 Ur Specific [place] >= 1.030 (1.005-1.025) H 09/09/23 17:07 Urine Protein 30 (1+) mg/dL (Neg-Trace) H 09/09/23 17:07 Urine Glucose (UA) Negative mg/dL (Negative) 09/09/23 17:07 Urine Ketones 15 mg/dL (Negative) 09/09/23 17:07 Urine Blood Negative (Negative) 09/09/23 17:07 Urine Nitrite Negative (Negative) 09/09/23 17:07 Ur Leukocyte Esterase Negative (Negative) 09/09/23 17:07 Urine RBC 0-2 /HPF (0-2) 09/09/23 17:07 Urine WBC 0-5 /HPF (0-5) 09/09/23 17:07 Ur Squamous Epith Cells 0-2 /HPF (0-2) 09/09/23 17:07 Urine Bacteria None Seen (None Seen) 09/09/23 17:07 Hyaline Casts 3-5 /LPF (0-2) 09/09/23 17:07 Stl C. cayetanensis PCR Not Detected (Not Detect.) 09/13/23 14:02 Stool Rotavirus A PCR Not Detected (Not Detect.) 09/13/23 14:02 Stl Adenov F 40/41 PCR Not Detected (Not Detect.) 09/13/23 14:02 Stool Astrovirus (PCR) Not Detected (Not Detect.) 09/13/23 14:02 Stool Campylobacter PCR Not Detected (Not Detect.) 09/13/23 14:02 Stool Cryptosporidium PCR Not Detected (Not Detect.) 09/13/23 14:02 Stl Sh Tox Pr E STEC PCR Not Detected (Not Detect.) 09/13/23 14:02 Stool E coli O157 PCR Not applicable (Not Detect.) 09/13/23 14:02 Stl Enterotoxigenic E PCR Not Detected (Not Detect.) 09/13/23 14:02 Stool EPEC (PCR) Not Detected (Not Detect.) 09/13/23 14:02 Stool EAEC (PCR) Not Detected (Not Detect.) 09/13/23 14:02 Stl E. histolytica PCR Not Detected (Not Detect.) 09/13/23 14:02 Stool Giardia Lamblia PCR Not Detected (Not Detect.) 09/13/23 14:02 Stl P. shigelloides PCR Not Detected (Not Detect.) 09/13/23 14:02 Stool Salmonella PCR Not Detected (Not Detect.) 09/13/23 14:02 Stool Sapovirus (PCR) Not Detected (Not Detect.) 09/13/23 14:02 Stl Shigella/EIEC PCR Not Detected (Not Detect.) 09/13/23 14:02 St Y.enterocolitica PCR Not Detected (Not Detect.) 09/13/23 14:02 Stool Vibrio (PCR) Not Detected (Not Detect.) 09/13/23 14:02 Stl Vibrio cholerae PCR Not Detected (Not Detect.) 09/13/23 14:02 Stl Norovirus GI/GII PCR Not Detected (Not Detect.) 09/13/23 14:02 Urine Opiates Screen Not Detected (Not Detect) 09/09/23 17:07 Ur Buprenorphine Scrn Not Detected ng/mL (Not Detect) 09/09/23 17:07 Ur Oxycodone Screen Not Detected ng/mL (Not Detect) 09/09/23 17:07 Urine Methadone Screen Not Detected ng/mL (Not Detect) 09/09/23 17:07 Urine Fentanyl Screen POSITIVE (Not Detect) H 09/09/23 17:07 Ur Barbiturates Screen Not Detected (Not Detect) 09/09/23 17:07 Ur Phencyclidine Scrn Not Detected (Not Detect) 09/09/23 17:07 Ur Amphetamines Screen Not Detected (Not Detect) 09/09/23 17:07 U Benzodiazepines Scrn Not Detected (Not Detect) 09/09/23 17:07 Urine Cocaine Screen Not Detected (Not Detect) 09/09/23 17:07 U Marijuana (THC) Screen POSITIVE (Not Detect) H 09/09/23 17:07 Ethyl Alcohol 126 mg/dL 09/09/23 16:55 COVID-19 ([facility]) Negative (Negative) 09/09/23 16:28 COVID-19 Clin Com See Note 09/09/23 16:28 Hep Bs Antigen Negative (Negative) 09/12/23 16:54 Hep Bs Antibody REACTIVE (Nonreactive) 09/12/23 16:54 Hep B Core Total Ab Nonreactive (Nonreactive) 09/12/23 16:54 Hepatitis C Ab (EIA) Nonreactive (Nonreactive) 09/12/23 16:54 Impressions Chest X-Ray 09/09/23 16:35 IMPRESSION: Unremarkable examination. Abdomen Ultrasound 09/10/23 16:10 IMPRESSION: 1. Hepatic steatosis. 2. Trace perihepatic ascites. Abdomen/Pelvis CT 09/13/23 12:09 IMPRESSION: Again seen are findings of acute interstitial pancreatitis with improvement in pancreatic parenchymal edema within the pancreatic head which is decreased in size with decreasing inflammatory change surrounding the pancreatic head and resolution of adjacent duodenal wall thickening. There is persistent peripancreatic fluid and stranding surrounding the pancreatic body and tail which is similar in volume to prior, with an acute peripancreatic collection inferior to the pancreas measuring approximately 7.6 cm. Pancreas is homogeneously enhancing. No pancreatic duct dilatation. Discharge Plan Discharge Anticipated Discharge Date/Time: 09/15/23 11:13 Patient Disposition: Home, Self-Care Discharge Diagnosis: alcoholic pancreatitis with peripancreatic fluid collection alcohol withdrawal elevated liver enzymes supraventricular tachycardia Referrals: Brennan Irby MD [Primary Care Provider] - 1 Week Angi Srinivasan MD [Physician] - 3 Weeks Discharge Medications: New acetaminophen 325 mg Tablet 650 mg PO Q6H PRN (Reason: Pain, Mild (Pain Scale 1-3), fever or headache) Qty: 30 0RF metoprolol tartrate 50 mg Tablet 50 mg PO BID Qty: 60 0RF Protocol: Hold for SBP/HR < HOLD for SBP < : 90 HOLD for HR < : 60 folic acid 1 mg Tablet 1 mg PO DAILY Qty: 30 0RF thiamine mononitrate (vit B1) 100 mg Tablet 100 mg PO DAILY Qty: 30 0RF Continued omeprazole 20 mg Tablet,Delayed Release (Dr/Ec) 20 mg PO DAILY Qty: 30 0RF Discharge Orders: Discharge Order (Routine); Ordered 09/15/23 Ordered By: Laurel Cuenca Diet: Advance to usual diet Activity on Discharge: As tolerated Stand Alone Forms: Patient Portal Discharge page Print Language: Swedish Other Ambulatory Orders: Liver Panel (Routine) Timeframe: 1 Week Facility: [facility] - Location: Laboratory Ordered By: Laurel Cuenca Care Plan Goals: sobriety Health Concerns: alcoholic pancreatitis with peripancreatic fluid collection alcohol withdrawal elevated liver enzymes supraventricular tachycardia Plan of Treatment: follow up with [facility], [address] [place] [address] Dr 3rd floor, [Dr Angi Srinivasan] in 3-4 weeks for repeat imaging of the pancreas take acetaminophen for pain maintain sobriety repeat labs [liver panel] in 1 week follow up with [facility], [address] [place] [address] [phone], Please follow up with your primary care doctor within 1 week. Return to the hospital if you experience recurrent or worsening symptoms. Assessment: See Discharge Summary.
== END 2023-09-15 12:25 | disposition home or self-care (01) | DRG 282 ==
LOC: HO.ED 18:13 → HO.EDOVER 21:09 → HO.IMC 22:45
PROVIDERS: Physician Assistant Medical; Admitting Provider Internal Medicine; Emergency Provider Emergency Medicine; PCP Internal Medicine; Visit Provider Family Medicine
DX: K85.20 Alcohol induced acute pancreatitis without necrosis or infection (principal); I47.10 Supraventricular tachycardia, unspecified; R65.10 Systemic inflammatory response syndrome (SIRS) of non-infectious origin without acute organ dysfunction; E83.42 Hypomagnesemia; K86.3 Pseudocyst of pancreas; R19.7 Diarrhea, unspecified; E87.6 Hypokalemia; I10 Essential (primary) hypertension; F10.129 Alcohol abuse with intoxication, unspecified; F10.139 Alcohol abuse with withdrawal, unspecified; Y90.6 Blood alcohol level of 120-199 mg/100 ml; Z20.822 Contact with and (suspected) exposure to COVID-19; Z79.899 Other long term (current) drug therapy
CPT/HCPCS: 36415; 71045; 74177; 76700; 80048; 80053; 80061; 80076; 80307; 81001; 82607; 83605; 83690; 83735; 84443; 84484; 85025; 85027; 85610; 86140; 86704; 86706; 86803; 87040; 87340; 87507; 87635; 93005; 93306; 99285; J1170; J1650; J1920; J2060; J2270; J2405; J2470; J2543; J2560; J3010; J3411; J3475; J7120; Q9957; Q9967

== ENCOUNTER → 2023-09-09 15:52 | Outpatient (BNV) | payer MEDICAID, SELFPAY | PROVIDERS: Admitting Provider Internal Medicine; Emergency Provider Emergency Medicine; PCP Internal Medicine; Visit Provider Internal Medicine | DX: R00.0 Tachycardia, unspecified (principal); R94.31 Abnormal electrocardiogram [ECG] [EKG] | CPT/HCPCS: 93010 ==

== ENCOUNTER 2023-09-09 21:00 | Outpatient (BNV) | payer OTHER, SELFPAY | END 2023-09-11 07:00 | PROVIDERS: Admitting Provider Internal Medicine; Emergency Provider Emergency Medicine; PCP Internal Medicine; Visit Provider Internal Medicine | DX: R00.0 Tachycardia, unspecified (principal) | CPT/HCPCS: 93306 ==

== ENCOUNTER → 2023-09-09 21:00 | Outpatient (BNV) | payer OTHER, SELFPAY | PROVIDERS: Admitting Provider Internal Medicine; Emergency Provider Emergency Medicine; PCP Internal Medicine; Visit Provider Internal Medicine | DX: I47.10 Supraventricular tachycardia, unspecified (principal); F10.10 Alcohol abuse, uncomplicated; K85.90 Acute pancreatitis without necrosis or infection, unspecified; E87.6 Hypokalemia | CPT/HCPCS: 99223; 99233 ==

== ENCOUNTER → 2023-09-09 21:00 | Outpatient (BNV) | payer MEDICAID, SELFPAY | PROVIDERS: Admitting Provider Internal Medicine; Emergency Provider Emergency Medicine; PCP Internal Medicine; Visit Provider Internal Medicine Gastroenterology | DX: K85.90 Acute pancreatitis without necrosis or infection, unspecified (principal); R74.01 Elevation of levels of liver transaminase levels; R74.02 Elevation of levels of lactic acid dehydrogenase [LDH] | CPT/HCPCS: 99222 ==

== ENCOUNTER → 2023-09-09 21:00 | Outpatient (BNV) | payer MEDICAID, OTHER, SELFPAY | PROVIDERS: Admitting Provider Internal Medicine; Emergency Provider Emergency Medicine; PCP Internal Medicine; Visit Provider Internal Medicine | DX: I47.10 Supraventricular tachycardia, unspecified (principal); K85.90 Acute pancreatitis without necrosis or infection, unspecified; F10.939 Alcohol use, unspecified with withdrawal, unspecified; F10.90 Alcohol use, unspecified, uncomplicated; R74.01 Elevation of levels of liver transaminase levels; R74.02 Elevation of levels of lactic acid dehydrogenase [LDH]; E87.6 Hypokalemia; E83.42 Hypomagnesemia; K86.89 Other specified diseases of pancreas | CPT/HCPCS: 99223; 99232; 99233; 99239 ==